=== PATIENT | female | born 1955 | race Caucasian/White ===

== ENCOUNTER → 2024-01-28 | Outpatient (CLI) | payer MEDICARE, SELFPAY ==
--- NOTE | 2024-01-28 14:56 | EKG_ITS ---
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
== END | disposition home or self-care (01) ==
LOC: SEKG 14:49
PROVIDERS: PCP Family Medicine; Referring Provider Internal Medicine Hematology & Oncology; Visit Provider Internal Medicine Hematology & Oncology
DX: C50.412 Malignant neoplasm of upper-outer quadrant of left female breast (principal); C79.51 Secondary malignant neoplasm of bone
CPT/HCPCS: 93005

== ENCOUNTER 2024-01-29 14:17 | Outpatient (RCR) | payer MEDICARE, SELFPAY ==
--- NOTE | 2024-01-10 11:31 | CTCTSUMM_ITS ---
[facility] [address] [place], [place] [address] Treatment Summary Date: 01/10/2024 MR#: [id number] Name: JEROME IBARRA : 1955 Dx: C50.412 Referring Physician: Samm Gottlieb MD (A) Diagnosis: [ICD10] C50.412 Malignant neoplasm of upper-outer quadrant of left female breast; [IC D10] C79.51 Secondary malignant neoplasm of bone (B) Aim of Treatment: Palliative (C) Concomitant Chemotherapy: Sequential (D) Radiation Dates: Prior radiation therapy to the left chest wall and regional node bearing si violette 6300 cGy March 2023. For C-spine mets recently discovered had additional radiother apy as follows on dates 11/21/2023 through 12/04/2023. Treatment Prescription 3000 VMAT 6 MV PHOT 3,000 cGy 10 300 cGy Approved (E) All arteaga were treated using customized MLC Blocks (F) (G) Finding at Discharge: When seen for first follow-up on 01/10/2024, patient was doing well with no significant pain in neck or elsewhere. (H) Discharge Instructions and F/U Appt was given: The patient was also advised to continue follow-up with Dr. Nathan and primary care physician: Electronically signed by: Ford Ortiz MD, JARRETT 01/10/2024 11:29 AM
[2024-01-16 16:32] LABS: Basophils % (Auto) 1 % (0-2.5); Eosinophils # (Auto) 0.1 Thou/mm3 (0.0-0.5); Eosinophils % (Auto) 2 % (0-10); Hematocrit 36.4 % (36.0-46.0); Immature Granulocytes % (Auto) 0 % (0-0); Immature Granulocytes Auto 0.01 Thou/mm3 (0.00-0.00); Lymphocytes % (Auto) 22 % (10-50); Mean Corpuscular Hemoglobin 29.5 pg (25.0-35.0); Mean Corpuscular Volume 89 fL (80-100); Monocytes # (Auto) 0.4 Thou/mm3 (0.0-0.8); Monocytes % (Auto) 9 % (0-12); Neutrophils # (Auto) 2.9 Thou/mm3 (1.8-7.7); Neutrophils % (Auto) 66 % (37-80); Nucleated Red Blood Cell % 0 /100 WBC (0); Platelet Count 213 Thou/mm3 (140-440); RDW Standard Deviation 47.9 fL (36.4-46.3); Red Blood Count 4.07 Miln/mm3 (4.00-5.20); White Blood Count 4.4 Thou/mm3 (3.6-11.0)
[2024-01-16 17:03] LABS: Alanine Aminotransferase 12 U/L (10-49); Albumin, Serum 4.4 gm/dL (3.4-4.8); Alkaline Phosphatase 68 U/L (46-116); Anion Gap 6 (7-16); Aspartate Amino Transferase 22 U/L (0-34); BUN/Creatinine Ratio 16 Ratio (12-20); Bilirubin,Total 0.4 mg/dL (0.3-1.2); Blood Urea Nitrogen 14 mg/dL (9-23); Calcium 9.2 mg/dL (8.3-10.6); Calcium (Corrected) 9.2 mg/dL (8.5-10.1); Carbon Dioxide 25.8 mMol/L (20.0-31.0); Chloride 105 mMol/L (98-107); Creatinine (Component) 0.9 mg/dL (0.6-1.3); Globulin 2.2 gm/dL (2.3-3.5); Glucose 90 mg/dL (74-106); Osmolality,Calculated 274 (275-295); Potassium 3.9 mMol/L (3.4-5.1); Sodium 137 mMol/L (136-145); Total Protein 6.6 gm/dL (5.7-8.2); eGFR > 60 See Note
[2024-01-16 17:04] LABS: Carcinoembryonic Antigen 1.7 ng/mL (0.0-5.0)
[2024-01-22 06:29] LABS: CA 27.29* 37 U/mL (LESS THAN 38)
[2024-01-29 15:33] LABS: Basophils % (Auto) 0 % (0-2.5); Eosinophils % (Auto) 1 % (0-10); Hematocrit 34.6 % (36.0-46.0); Hemoglobin 11.8 g/dL (12.0-16.0); Immature Granulocytes % (Auto) 0 % (0-0); Lymphocytes % (Auto) 36 % (10-50); Mean Corpuscular HGB Conc 34.1 g/dl (31.0-37.0); Mean Corpuscular Hemoglobin 30.1 pg (25.0-35.0); Mean Corpuscular Volume 88 fL (80-100); Monocytes # (Auto) 0.2 Thou/mm3 (0.0-0.8); Monocytes % (Auto) 6 % (0-12); Neutrophils # (Auto) 1.5 Thou/mm3 (1.8-7.7); Neutrophils % (Auto) 57 % (37-80); Nucleated Red Blood Cell % 0 /100 WBC (0); Platelet Count 125 Thou/mm3 (140-440); RDW Standard Deviation 45.7 fL (36.4-46.3); Red Blood Count 3.92 Miln/mm3 (4.00-5.20)
[2024-01-29 16:00] LABS: Alanine Aminotransferase 11 U/L (10-49); Albumin, Serum 4.6 gm/dL (3.4-4.8); Alkaline Phosphatase 68 U/L (46-116); Anion Gap 7 (7-16); Aspartate Amino Transferase 20 U/L (0-34); BUN/Creatinine Ratio 16 Ratio (12-20); Bilirubin,Total 0.4 mg/dL (0.3-1.2); Blood Urea Nitrogen 14 mg/dL (9-23); Carbon Dioxide 28.5 mMol/L (20.0-31.0); Chloride 102 mMol/L (98-107); Creatinine (Component) 0.9 mg/dL (0.6-1.3); Globulin 2.3 gm/dL (2.3-3.5); Glucose 88 mg/dL (74-106); Osmolality,Calculated 273 (275-295); Sodium 137 mMol/L (136-145); Total Protein 6.9 gm/dL (5.7-8.2); eGFR > 60 See Note
[2024-01-29 16:02] LABS: White Blood Count 2.7 Thou/mm3 (3.6-11.0)
[2024-02-04 07:01] LABS: CA 27.29* <10 U/mL (LESS THAN 38)
== END 2024-02-02 23:59 | disposition home or self-care (01) ==
LOC: SCTC 14:17
PROVIDERS: Internal Medicine Hematology & Oncology; PCP Family Medicine; Referring Provider Family Medicine; Visit Provider Radiology Therapeutic Radiology
DX: Z51.11 Encounter for antineoplastic chemotherapy (principal); C50.412 Malignant neoplasm of upper-outer quadrant of left female breast; Z17.0 Estrogen receptor positive status [ER+]; Z17.22 Progesterone receptor negative status; Z17.32 Human epidermal growth factor receptor 2 negative status; C79.51 Secondary malignant neoplasm of bone
CPT/HCPCS: 36591; 80053; 82378; 85025; 86300; 96365; 96367; 96402; 99212; A4216; J1642; J3489; J9395; G0463

== ENCOUNTER 2024-02-18 12:59 | Outpatient (RCR) | payer MEDICARE, SELFPAY ==
[2024-02-08 11:33] LABS: Basophils % (Auto) 1 % (0-2.5); Eosinophils % (Auto) 1 % (0-10); Hematocrit 34.9 % (36.0-46.0); Hemoglobin 11.8 g/dL (12.0-16.0); Immature Granulocytes % (Auto) 1 % (0-0); Immature Granulocytes Auto 0.01 Thou/mm3 (0.00-0.00); Lymphocytes # (Auto) 0.8 Thou/mm3 (1.0-4.8); Lymphocytes % (Auto) 38 % (10-50); Mean Corpuscular HGB Conc 33.8 g/dl (31.0-37.0); Mean Corpuscular Hemoglobin 30.9 pg (25.0-35.0); Mean Corpuscular Volume 91 fL (80-100); Monocytes # (Auto) 0.2 Thou/mm3 (0.0-0.8); Monocytes % (Auto) 9 % (0-12); Neutrophils # (Auto) 1.1 Thou/mm3 (1.8-7.7); Neutrophils % (Auto) 50 % (37-80); Nucleated Red Blood Cell % 0 /100 WBC (0); Platelet Count 97 Thou/mm3 (140-440); RDW Standard Deviation 49.3 fL (36.4-46.3); Red Blood Count 3.82 Miln/mm3 (4.00-5.20)
[2024-02-08 12:09] LABS: Carcinoembryonic Antigen 1.6 ng/mL (0.0-5.0)
[2024-02-08 12:10] LABS: Alanine Aminotransferase 10 U/L (10-49); Albumin, Serum 4.6 gm/dL (3.4-4.8); Albumin/Globulin Ratio 2.1 (1.2-2.2); Alkaline Phosphatase 63 U/L (46-116); Anion Gap 10 (7-16); Aspartate Amino Transferase 19 U/L (0-34); BUN/Creatinine Ratio 13 Ratio (12-20); Bilirubin,Total 0.3 mg/dL (0.3-1.2); Blood Urea Nitrogen 12 mg/dL (9-23); Calcium 9.5 mg/dL (8.3-10.6); Calcium (Corrected) 9.5 mg/dL (8.5-10.1); Carbon Dioxide 26.3 mMol/L (20.0-31.0); Chloride 102 mMol/L (98-107); Creatinine (Component) 0.9 mg/dL (0.6-1.3); Globulin 2.2 gm/dL (2.3-3.5); Glucose 105 mg/dL (74-106); Osmolality,Calculated 275 (275-295); Potassium 3.8 mMol/L (3.4-5.1); Sodium 138 mMol/L (136-145); Total Protein 6.8 gm/dL (5.7-8.2); eGFR > 60 See Note
[2024-02-08 12:16] LABS: White Blood Count 2.1 Thou/mm3 (3.6-11.0)
--- NOTE | 2024-02-11 15:18 | CTCFLWUP_ITS ---
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 S/p left modified radical mastectomy (09/19/2022) S/p 4 cycles of dose dense AC chemotherapy followed by 3 cycles of Taxol in the adjuvant setting. 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 The last dose of Taxol discontinued. Status post adjuvant anastrozole 02/21/2023?11/26/2023. Stopped due to progression Patient was not able to tolerate abemaciclib which caused significant diarrhea. Currently undergoing radiation therapy left chest as well as left neck. REASON FOR TODAY?S VISIT: This is office follow-up visit. Ms. Ibarra is here at [facility]. Recently she was found to have metastatic disease to cervical vertebral augusto s as well as to the lumbar spine area. She completed radiation therapy to the cervical vertebra. Dany ladd is on ribociclib and fulvestrant and doing well. Her pain is better controlled with the gabape ntin. REASON FOR TODAY?S VISIT: Follow-up. Patient is metastatic breast cancer on ribociclib and fulvestrant. Patient is doing well . She does not have any complaints with ribociclib and tolerating it. Patient is on 400 mg twice da matthieu. She is also on bone infusions and take calcium and vitamin D. She would like me to increase he r gabapentin so her pain is better controlled. She says her pain gets worse and when she is stressed out or worked too much. She would like to also go back to her chiropractic. HISTORY OF PRESENT ILLNESS: Patient is a 69-year-old female with the following oncology his tory. 02/01/2022: Bilateral screening mammograms? 02/01/2022: Bilateral breast ultrasound 07/20/2022: Ultrasound-guided biopsy of the left breast nodule. 08/15/2022: Ms. Ibarra had breast lumpectomy and sentinel lymph node biopsy 09/07/2022: Echocardiogram showed left ventricular ejection fraction 65%. 09/19/2022: Ms. Ibarra had left modified radical mastectomy 09/28/2022: PET/CT scan 11/16/2022: Patient had first cycle of dose dense AC chemotherapy. 11/20/2022: Patient was seen in the emergency room because of epigastric pain and had EKG done. Troponin levels were in the normal range twice. Echocardiogram showed an ejection fraction of 60-65% Dr. Cortes Ravi saw Ms. Ibarra on 11/25/2022. He cleared Ms. Ibarra to continue chemotherapy from c ardiology point of view. 12/28/2022: Ms. Ibarra had a full cycle of dose dense AC. 01/18/2023 - 02/15/2023: Ms. Ibarra had 3 cycles of dose dense Taxol. Unfortunately she was not abl e to get the fourth cycle of Taxol due to significant peripheral neuropathy. 02/21/2023: Ms. Ibarra is started on adjuvant anastrozole as well as abemaciclib. After taking abem aciclib 150 mg p.o. twice daily for 6 days Ms. Ibrara decided to discontinue it due to significant d iarrhea. 03/14/2023: Ms. Ibarra received first dose of adjuvant zoledronic acid. 03/28/2023: Ms. Ibarra is started on adjuvant radiation therapy to the left chest wall as well as lef t side of neck. 09/20/2023: PET/CT scan 10/01/2023: MRI of the thoracic spine with and without contrast 10/29/2023: MRI of the cervical spine with and without contrast 11/21/2023: Ms. Ibarra is started on radiation therapy to the cervical spine area. 11/23/2023: Bone scan? PAST MEDICAL HISTORY: BREAST?CA???HIGH?BLOOD?PRESSURE PAST SURGICAL HISTORY: GALLBLADDER,??HYSTRECTOMY??2006 MEDICATIONS: 1. albuterol - As directed 2. alendronate - 35 mg 1 tab Weekly 3. amlodipine - 25 mg Daily 4. baclofen - 10 mg Daily 5. Colace - 100 mg 1 Capsule Daily 6. Compazine - 10 mg 1 tab As needed 7. FLUoxetine - 10 mg 1 tab Daily 8. gabapentin - 600 mg 1 tab Three times a day 9. gabapentin - 300 mg 3 Capsule 3 tabs three times Daily 10. HYDROcodone-acetaminophen - 7.5-325 mg 1 tab q6 11. hydrocodone-acetaminophen - 5-325 mg 1 tab As needed 12. Lomotil - 2.5-0.025 mg 1 tab Every 6 Hours 13. omeprazole - 20 mg 1 Daily 14. ribociclib - 400 mg/day (200 mg x 2) 2 tab Daily 15. simvastatin - 20 mg Daily 16. traZODone - 50 mg 1 tab Every day before sleep 17. Vitamin B1 - 1 tab Daily 18. Vitamin D3 - 400 unit 1 Capsule Daily 19. vitamins A, C, and E/dietary supplement,[facility] comb no.12 - As directed 20. ZINC ACETATE - As directed 21. Zofran - 4 mg tab As needed Medications Last Reconciled by Karo Blackwood MA on 02/11/2024 ALLERGIES: sulfasalazine REVIEW OF SYSTEMS: Neurological: No headache, seizures or blurring of vision. Gastrointestinal: No nausea, vomiting, diarrhea or constipation. Cardiovascular: No palpitations or angina pains. Respiratory: No cough, chest pain or shortness of breath. PHYSICAL EXAMINATION: VITAL SIGNS: Temperature?98.3, B/P?129/83, Oxygen?Saturation?92% Weight?129?lbs (Change?since?02/08/24 :?2?lbs) PAIN: 0 - No pain ECOG Performance Status: 1 - Symptomatic; ambulatory; restricted in strenuous activity EYE: Conjunctivae is moist MOUTH: Oral cavity is dry. CHEST: Clear to auscultation. No wheezes or rales audible. CARDIAC: Rhythm regular, no murmurs or gallops present. ABDOMEN: Soft. No hepatosplenomegaly. EXTREMITIES: No pedal edema or cyanosis. LABORATORY DATA: Date 02/08/24 ??WHITE?BLOOD?COUNT?(Thou/mm3) 2.1?L ??RED?BLOOD?COUNT?(Miln/mm3) 3.82?L ??HEMOGLOBIN?(gm/dl) 11.8?L ??HEMATOCRIT?(%) 34.9?L ??MCV?(MEAN?CORPUSCULAR?VOL)?(fl) 91 ??MCH?(MEAN?CORPUSCULAR?HGB)?(pg) 30.9 ??MCHC?(MEAN?CORPSCULR?HGB?CONC)?(gm/dl) 33.8 ??RDW?(RBC?DISTRIBUTION?WDTH)?SD?(fl) 49.3?H ??PLATELET?COUNT?(Thou/mm3) 97?L ??NEUTROPHILS?%,?AUTO?(%) 50 ??LYMPH?%,?AUTO?(%) 38 ??MONO?%,?AUTO?(%) 9 ??EOS?%,?AUTO?(%) 1 ??BASO?%,?AUTO?(%) 1 ??NUCLEATED?RBC?%?(/100?WBC) 0 ??NEUTROPHILS,?AUTO?(Thou/mm3) 1.1?L ??LYMPH,?AUTO?(Thou/mm3) 0.8?L ??MONO,?AUTO?(Thou/mm3) 0.2 ??EOS,?AUTO?(Thou/mm3) 0.0 ??BASO,?AUTO?(Thou/mm3) 0.0 ??NUCLEATED?RBC?#?(Thou/mm3) 0.00 ??IMMATURE?GRANULOCYTES?%?AUTO?(%) 1?H ??IMMATURE?GRANULOCYTES,?AUTO?(Thou/mm3) 0.01?H ??GLUCOSE,RANDOM?(mg/dL) 105 ??BLOOD?UREA?NITROGEN?(mg/dL) 12 ??CREATININE?(mg/dL) 0.90 ??SODIUM?(mmol/L) 138 ??POTASSIUM?(mmol/L) 3.8 ??CHLORIDE?(mmol/L) 102 ??CO2?(CARBON?DIOXIDE)?(mmol/L) 26.3 ??ANION?GAP?(mmol/L) 10 ??OSMOLALITY,?CALC 275 ??BUN/CREATININE?RATIO?(Ratio) 13 ??CrCl?(CandG)?(ml/min) 54.41 ??AST/SGOT?(Unit/L) 19 ??ALT/SGPT?(Unit/L) 10 ??ALKALINE?PHOSPHATASE?(Unit/L) 63 ??BILIRUBIN,?TOTAL?(mg/dL) 0.3 ??PROTEIN?TOTAL?(gm/dl) 6.8 ??ALBUMIN,?SERUM?(gm/dl) 4.6 ??GLOBULIN?(gm/dl) 2.2?L ??ALBUMIN/GLOBULIN?RATIO 2.1 ??CALCIUM,?SERUM?(mg/dL) 9.5 ??CALCIUM?SERUM?(CORRECTED)?(mg/dL) 9.5 ??CEA?(O*)?(ng/ml) 1.6 Other?Labs ? ??CrCl?(J)?(ml/min) 59.6 ??eGFR?(See?Note) >?60 ASSESSMENT: #1 stage IV metastatic breast cancer with bone mets, ER positive ME negative HER2/colette negative AKT1 mutation positive Bone scan showed osseous metastatic disease as documented above. MRI of the cczwcal spine with and w ithout contrast showed osseous metastatic disease involving C5, C6, C7 vertebral bodies. Completed radiotherapy to the cervical spine Patient started on Faslodex and ribociclib Patient previously was on adjuvant anastrozole started on February 21, 2023. Patient adjuvant abemaci clib 150 mg p.o. twice daily for about 6 days. She was unable to continue due to significant diarrhea . Patient also received first dose of adjuvant zoledronic acid on 03/14/2023. S/p 4 cycles of dose dense AC and 3 cycles of dose dense Taxol. Ms. Ibarra is scheduled to receive t hird cycle of dose dense Taxol on 02/15/2023. S/p left modified radical mastectomy (09/19/2022) Will hold on Capivasertib which can be used in third line setting Plan is to continue ribociclib and fulvestrant until further progression of disease PET CT scan ordered to see response to treatment CBC CMP CA 15-3 EKG and RTC in 1 month #2 bone mets Zoledronic acid IV every 3 months for bone mets Continue Citracal 1 tablet p.o. twice da matthieu. #3 pain management Patient to follow with Dr. Ortiz for pain management Ordered gabapentin 300 mg 3 times daily for better neuropathic pain control Electronically Signed by: Inocente Nathan MD T: 3:15 PM CC: Baljeet? PCP: Jewel Dolan Referring: Jewel Dolan This document was completed utilizing speech recognition software. Grammatical errors, random word in sertions, pronoun errors, and incomplete sentences are an occasional consequence of this system due t o software limitations, ambient noise, and hardware issues. Any formal questions or concerns about th e content, text or information contained within the body of this dictation should be directly address ed to the provider for clarification.
[2024-02-12 06:27] LABS: CA 27.29* 27 U/mL (LESS THAN 38)
[2024-02-15 10:52] LABS: Basophils % (Auto) 1 % (0-2.5); Eosinophils % (Auto) 1 % (0-10); Hematocrit 34.8 % (36.0-46.0); Hemoglobin 11.7 g/dL (12.0-16.0); Immature Granulocytes % (Auto) 0 % (0-0); Lymphocytes # (Auto) 0.7 Thou/mm3 (1.0-4.8); Lymphocytes % (Auto) 31 % (10-50); Mean Corpuscular HGB Conc 33.6 g/dl (31.0-37.0); Mean Corpuscular Hemoglobin 30.7 pg (25.0-35.0); Mean Corpuscular Volume 91 fL (80-100); Monocytes # (Auto) 0.2 Thou/mm3 (0.0-0.8); Monocytes % (Auto) 7 % (0-12); Neutrophils # (Auto) 1.3 Thou/mm3 (1.8-7.7); Neutrophils % (Auto) 59 % (37-80); Nucleated Red Blood Cell % 0 /100 WBC (0); Platelet Count 205 Thou/mm3 (140-440); RDW Standard Deviation 54.3 fL (36.4-46.3); Red Blood Count 3.81 Miln/mm3 (4.00-5.20)
[2024-02-15 11:07] LABS: White Blood Count 2.3 Thou/mm3 (3.6-11.0)
[2024-02-15 11:12] LABS: Alanine Aminotransferase 13 U/L (10-49); Albumin, Serum 4.5 gm/dL (3.4-4.8); Alkaline Phosphatase 64 U/L (46-116); Anion Gap 8 (7-16); Aspartate Amino Transferase 20 U/L (0-34); BUN/Creatinine Ratio 13 Ratio (12-20); Bilirubin,Total 0.3 mg/dL (0.3-1.2); Blood Urea Nitrogen 12 mg/dL (9-23); Calcium 9.4 mg/dL (8.3-10.6); Calcium (Corrected) 9.4 mg/dL (8.5-10.1); Carbon Dioxide 25.5 mMol/L (20.0-31.0); Chloride 106 mMol/L (98-107); Creatinine (Component) 0.9 mg/dL (0.6-1.3); Globulin 2.2 gm/dL (2.3-3.5); Glucose 84 mg/dL (74-106); Osmolality,Calculated 276 (275-295); Sodium 139 mMol/L (136-145); Total Protein 6.7 gm/dL (5.7-8.2); eGFR > 60 See Note
[2024-02-15 11:27] LABS: CA 15-3 24.4 U/mL (<32.4)
[2024-02-18 13:34] LABS: Basophils % (Auto) 1 % (0-2.5); Eosinophils # (Auto) 0.1 Thou/mm3 (0.0-0.5); Eosinophils % (Auto) 2 % (0-10); Hematocrit 33.5 % (36.0-46.0); Hemoglobin 11.4 g/dL (12.0-16.0); Immature Granulocytes % (Auto) 0 % (0-0); Lymphocytes # (Auto) 1.1 Thou/mm3 (1.0-4.8); Lymphocytes % (Auto) 36 % (10-50); Mean Corpuscular Hemoglobin 31.1 pg (25.0-35.0); Mean Corpuscular Volume 91 fL (80-100); Monocytes # (Auto) 0.2 Thou/mm3 (0.0-0.8); Monocytes % (Auto) 6 % (0-12); Neutrophils # (Auto) 1.7 Thou/mm3 (1.8-7.7); Neutrophils % (Auto) 55 % (37-80); Nucleated Red Blood Cell % 0 /100 WBC (0); Platelet Count 242 Thou/mm3 (140-440); RDW Standard Deviation 55.1 fL (36.4-46.3); Red Blood Count 3.67 Miln/mm3 (4.00-5.20); White Blood Count 3.1 Thou/mm3 (3.6-11.0)
== END 2024-03-04 23:59 | disposition home or self-care (01) ==
LOC: SCTC 12:59
PROVIDERS: PCP Family Medicine; Referring Provider Family Medicine; Visit Provider Internal Medicine Hematology & Oncology
DX: Z51.11 Encounter for antineoplastic chemotherapy (principal); C50.812 Malignant neoplasm of overlapping sites of left female breast; C79.51 Secondary malignant neoplasm of bone; Z17.0 Estrogen receptor positive status [ER+]; Z17.22 Progesterone receptor negative status; Z17.32 Human epidermal growth factor receptor 2 negative status; Z79.818 Long term (current) use of other agents affecting estrogen receptors and estrogen levels; G62.0 Drug-induced polyneuropathy; T45.1X5D Adverse effect of antineoplastic and immunosuppressive drugs, subsequent encounter
CPT/HCPCS: 36591; 80053; 82378; 84443; 84480; 85025; 86300; 96365; 96367; 96402; 99212; A4216; J1642; J3489; J9395; G0463

== ENCOUNTER → 2024-02-28 | Outpatient (CLI) | payer MEDICARE, SELFPAY ==
--- NOTE | 2024-02-28 12:30 | XR_ITS ---
EXAMINATION: PET/CT FUSION SKULL TO THIGH EXAM DATE AND TIME: February 28, 2024 1302 hours Comparison September 20, 2023 INDICATIONS: Diagnosis breast cancer post treatment restaging CTDI:vol (mGy) 2.84 DLP: (mGycm) 259.72 PROCEDURE: 15.39 mCi FDG was administered intravenously To allow for distribution and uptake of radiotracer, the patient was allowed to rest quietly in a shielded room. Imaging was performed on an integrated 16-slice PET/CT scanner, with scanning from the skull base to the mid thigh. Serum blood glucose at the time of the injection was measured 93 mg/dL. CT scanning was performed without oral or intravenous contrast material. FINDINGS: Head and Neck: There is no silvana hypermetabolism in the neck. The visualized portions of the brain are normal in appearance on CT. Chest: Interval weakly hypermetabolic 10 mm pulmonary nodule right lower lobe Abdomen and Pelvis: There is no silvana hypermetabolism in retroperitoneal or pelvic chains. The spleen is normal in size and FDG avidity. Musculoskeletal: Marrow uptake is within normal range. IMPRESSION: Interval weakly hypermetabolic 10 mm pulmonary nodule right lower lobe Recommend high resolution follow-up CT chest post intravenous contrast
== END | disposition home or self-care (01) ==
PROVIDERS: PCP Family Medicine; Referring Provider Internal Medicine Hematology & Oncology; Visit Provider Internal Medicine Hematology & Oncology
DX: R91.1 Solitary pulmonary nodule (principal); C50.412 Malignant neoplasm of upper-outer quadrant of left female breast; C79.51 Secondary malignant neoplasm of bone
CPT/HCPCS: 78815; A9552

== ENCOUNTER 2024-04-01 10:24 | Outpatient (RCR) | payer MEDICARE, SELFPAY ==
[2024-03-25 15:59] LABS: Basophils % (Auto) 1 % (0-2.5); Eosinophils # (Auto) 0.1 Thou/mm3 (0.0-0.5); Eosinophils % (Auto) 3 % (0-10); Hematocrit 29.6 % (36.0-46.0); Hemoglobin 10.3 g/dL (12.0-16.0); Immature Granulocytes % (Auto) 1 % (0-0); Immature Granulocytes Auto 0.02 Thou/mm3 (0.00-0.00); Lymphocytes # (Auto) 0.9 Thou/mm3 (1.0-4.8); Lymphocytes % (Auto) 32 % (10-50); Mean Corpuscular HGB Conc 34.8 g/dl (31.0-37.0); Mean Corpuscular Hemoglobin 32.7 pg (25.0-35.0); Mean Corpuscular Volume 94 fL (80-100); Monocytes # (Auto) 0.2 Thou/mm3 (0.0-0.8); Monocytes % (Auto) 6 % (0-12); Neutrophils # (Auto) 1.7 Thou/mm3 (1.8-7.7); Neutrophils % (Auto) 58 % (37-80); Nucleated Red Blood Cell % 0 /100 WBC (0); Platelet Count 165 Thou/mm3 (140-440); RDW Standard Deviation 62.2 fL (36.4-46.3); Red Blood Count 3.15 Miln/mm3 (4.00-5.20)
[2024-03-25 16:10] LABS: White Blood Count 2.9 Thou/mm3 (3.6-11.0)
[2024-03-25 16:42] LABS: Alanine Aminotransferase 9 U/L (10-49); Albumin, Serum 4.1 gm/dL (3.4-4.8); Albumin/Globulin Ratio 1.9 (1.2-2.2); Alkaline Phosphatase 64 U/L (46-116); Anion Gap 8 (7-16); Aspartate Amino Transferase 17 U/L (0-34); BUN/Creatinine Ratio 18 Ratio (12-20); Bilirubin,Total 0.3 mg/dL (0.3-1.2); Blood Urea Nitrogen 14 mg/dL (9-23); Calcium 8.2 mg/dL (8.3-10.6); Calcium (Corrected) 8.2 mg/dL (8.5-10.1); Carbon Dioxide 24.9 mMol/L (20.0-31.0); Chloride 106 mMol/L (98-107); Creatinine (Component) 0.8 mg/dL (0.6-1.3); Globulin 2.2 gm/dL (2.3-3.5); Glucose 108 mg/dL (74-106); Osmolality,Calculated 279 (275-295); Potassium 3.8 mMol/L (3.4-5.1); Sodium 139 mMol/L (136-145); Total Protein 6.3 gm/dL (5.7-8.2); eGFR > 60 See Note
[2024-03-25 16:46] LABS: CA 15-3 18.1 U/mL (<32.4); Carcinoembryonic Antigen 1.5 ng/mL (0.0-5.0)
[2024-03-31 06:43] LABS: CA 27.29* 31 U/mL (LESS THAN 38)
[2024-04-01 12:16] LABS: Basophils % (Auto) 1 % (0-2.5); Eosinophils % (Auto) 2 % (0-10); Hemoglobin 11.4 g/dL (12.0-16.0); Immature Granulocytes % (Auto) 0 % (0-0); Immature Granulocytes Auto 0.01 Thou/mm3 (0.00-0.00); Lymphocytes # (Auto) 0.8 Thou/mm3 (1.0-4.8); Lymphocytes % (Auto) 32 % (10-50); Mean Corpuscular HGB Conc 34.5 g/dl (31.0-37.0); Mean Corpuscular Volume 96 fL (80-100); Monocytes # (Auto) 0.2 Thou/mm3 (0.0-0.8); Monocytes % (Auto) 7 % (0-12); Neutrophils # (Auto) 1.5 Thou/mm3 (1.8-7.7); Neutrophils % (Auto) 58 % (37-80); Nucleated Red Blood Cell % 0 /100 WBC (0); Platelet Count 144 Thou/mm3 (140-440); RDW Standard Deviation 62.3 fL (36.4-46.3); Red Blood Count 3.45 Miln/mm3 (4.00-5.20)
[2024-04-01 12:19] LABS: White Blood Count 2.7 Thou/mm3 (3.6-11.0)
[2024-04-01 13:11] LABS: Carcinoembryonic Antigen 1.8 ng/mL (0.0-5.0)
[2024-04-01 13:24] LABS: Alanine Aminotransferase 9 U/L (10-49); Albumin, Serum 4.6 gm/dL (3.4-4.8); Albumin/Globulin Ratio 2.1 (1.2-2.2); Alkaline Phosphatase 64 U/L (46-116); Anion Gap 7 (7-16); Aspartate Amino Transferase 18 U/L (0-34); BUN/Creatinine Ratio 16 Ratio (12-20); Bilirubin,Total 0.3 mg/dL (0.3-1.2); Blood Urea Nitrogen 16 mg/dL (9-23); Calcium 9.9 mg/dL (8.3-10.6); Calcium (Corrected) 9.9 mg/dL (8.5-10.1); Carbon Dioxide 27.6 mMol/L (20.0-31.0); Chloride 101 mMol/L (98-107); Globulin 2.2 gm/dL (2.3-3.5); Glucose 87 mg/dL (74-106); Osmolality,Calculated 272 (275-295); Potassium 3.8 mMol/L (3.4-5.1); Sodium 136 mMol/L (136-145); Total Protein 6.8 gm/dL (5.7-8.2); eGFR > 60 See Note
[2024-04-07 06:36] LABS: CA 27.29* 40 U/mL (LESS THAN 38)
== END 2024-04-04 23:59 | disposition home or self-care (01) ==
LOC: SCTC 10:24
PROVIDERS: PCP Family Medicine; Referring Provider Family Medicine; Visit Provider Internal Medicine Hematology & Oncology
DX: C50.812 Malignant neoplasm of overlapping sites of left female breast (principal); C79.51 Secondary malignant neoplasm of bone; Z17.0 Estrogen receptor positive status [ER+]; Z17.22 Progesterone receptor negative status; Z17.32 Human epidermal growth factor receptor 2 negative status; Z92.3 Personal history of irradiation; Z79.818 Long term (current) use of other agents affecting estrogen receptors and estrogen levels; Z90.12 Acquired absence of left breast and nipple
CPT/HCPCS: 36591; 80053; 82378; 85025; 86300; 96402; A4216; J1642; J3489; J9395

== ENCOUNTER 2024-04-16 13:18 | Outpatient (RCR) | payer MEDICARE, SELFPAY ==
--- NOTE | 2024-04-10 14:20 | CTCFLWUP_ITS ---
[facility] [address] [place], [place] [address] FOLLOW-UP NOTE Date: 04/10/2024 MR#: [id number] Name: JEROME IBARRA : 1955 Dx: C50.412 Malignant neoplasm of upper-outer quadrant of left female breast Identification. Patient with history of stage IIIc (status post left modified radical mastectomy 09/19/2022. 4 cycles of dose dense AC chemo followed by 3 cycles of Taxol in adjuvant setting. Patient has since been on anastrozole for receptor positive cancer. Complete XRT left chest wall and regional node bearing sites 6300 centigray completed 3 08/29/2023. PET scan 09/20/2023 showed no interval met disease. Was experiencing neck pain and MRI cervical spine 10/29/2023 showed osseous met disease C5-6-7 area. Bone scan 11/23/2023 showed uptake in C6 L3-L4 right anterior lower rib. Interventional radiologist did not wish to biopsy the cervical spine and because of pain symptoms radiation therapy was delivered 3000 cGy via VMAT completed 12/04/2023. Currently patient is still experiencing some pain taking occasional [place] and Tylenol. Most recent PET scan 02/28/2024 showed normal appearance of bony sites including the cervical area but there was a weakly hypermetabolic 10 mm pulmonary nodule right lower lobe. Assessment#1. History of stage IIIc left breast CA mastectomy and postop chemo and chest wall regional node bearing site radiation completed 08/29/2023. #2. Cervical bone mets noted via bone scan and MRI C-spine radiation completed 12/04/2023. #3. Still having some pain but rarely takes opioids. #3. PET scan 02/28/2024 showed no obvious bony involvement but 10 mm pulmonary nodule right lower lobe which is weakly hypermetabolic. #[address] Nathan. next week to discuss results, possible scheduling of CT. additional therapy. Electronically signed by: Ford Ortiz M.D. 04/10/2024 2:18 PM
--- NOTE | 2024-04-16 15:17 | CTCFLWUP_ITS ---
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 S/p left modified radical mastectomy (09/19/2022) S/p 4 cycles of dose dense AC chemotherapy followed by 3 cycles of Taxol in the adjuvant setting. 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 The last dose of Taxol discontinued. Status post adjuvant anastrozole 02/21/2023?11/26/2023. Stopped due to progression Patient was not able to tolerate abemaciclib which caused significant diarrhea. Currently undergoing radiation therapy left chest as well as left neck. 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 02/01/2022: Bilateral screening mammograms? 02/01/2022: Bilateral breast ultrasound 07/20/2022: Ultrasound-guided biopsy of the left breast nodule. 08/15/2022: Ms. Ibarra had breast lumpectomy and sentinel lymph node biopsy 09/07/2022: Echocardiogram showed left ventricular ejection fraction 65%. 09/19/2022: Ms. Ibarra had left modified radical mastectomy 09/28/2022: PET/CT scan 11/16/2022: Patient had first cycle of dose dense AC chemotherapy. 11/20/2022: Patient was seen in the emergency room because of epigastric pain and had EKG done. Troponin levels were in the normal range twice. Echocardiogram showed an ejection fraction of 60-65% Dr. Cortes Ravi saw Ms. Ibarra on 11/25/2022. He cleared Ms. Ibarra to continue chemotherapy from cardiology point of view. 12/28/2022: Ms. Ibarra had a full cycle of dose dense AC. 01/18/2023 - 02/15/2023: Ms. Ibarra had 3 cycles of dose dense Taxol. Unfortunately she was not able to get the fourth cycle of Taxol due to significant peripheral neuropathy. 02/21/2023: Ms. Ibarra is started on adjuvant anastrozole as well as abemaciclib. After taking abemaciclib 150 mg p.o. twice daily for 6 days Ms. Ibarra decided to discontinue it due to significant diarrhea. 03/14/2023: Ms. Ibarra received first dose of adjuvant zoledronic acid. 03/28/2023: Ms. Ibarra is started on adjuvant radiation therapy to the left chest wall as well as left side of neck. 09/20/2023: PET/CT scan 10/01/2023: MRI of the thoracic spine with and without contrast 10/29/2023: MRI of the cervical spine with and without contrast 11/21/2023: Ms. Ibarra is started on radiation therapy to the cervical spine area. 11/23/2023: Bone scan? 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 FAMILY HISTORY: Father:?LUNG Cancer History:?2 AUNTS LUNG MATERNAL AUNT BREAST ?Clone Family Hx? SOCIAL HISTORY: Occupational?History:?RETIRED Education?Level:?6-Attended?Vocational?School,?did?not?graduate Marital?Status:? Tobacco?Pack?per?Day:?0 ETOH?Use:?SOCIAL Drug?Note:?DENIES Social?History?Note:?LIVES?WITH? ?Clone Social Hx? LITIGATION COUNSEL HISTORY: Menarche?-?Age:?13 Menopause:?2005 :?2 Live?Births:?2 Age?1st?:?23 ?Clone LITIGATION COUNSEL Hx? MEDICATIONS: 1. albuterol - As directed 2. alendronate - 35 mg 1 tab Weekly 3. amlodipine - 25 mg Daily 4. baclofen - 10 mg Daily 5. Colace - 100 mg 1 Capsule Daily 6. Compazine - 10 mg 1 tab As needed 7. FLUoxetine - 10 mg 1 tab Daily 8. gabapentin - 600 mg 1 tab Three times a day 9. gabapentin - 300 mg 3 Capsule 3 tabs three times Daily 10. HYDROcodone-acetaminophen - 7.5-325 mg 1 tab q6 11. hydrocodone-acetaminophen - 5-325 mg 1 tab As needed 12. Lomotil - 2.5-0.025 mg 1 tab Every 6 Hours 13. omeprazole - 20 mg 1 Daily 14. ribociclib - 400 mg/day (200 mg x 2) 2 tab Daily 15. ribociclib - 600 mg/day (200 mg x 3) 3 tab take 2 times daily 16. simvastatin - 20 mg Daily 17. traZODone - 50 mg 1 tab Every day before sleep 18. Vitamin B1 - 1 tab Daily 19. Vitamin D3 - 400 unit 1 Capsule Daily 20. vitamins A, C, and E/dietary supplement,mis comb no.12 - As directed 21. ZINC ACETATE - As directed 22. Zofran - 4 mg tab As needed?Palabra Meds? Medications Last Reconciled by Mirian Figueroa MA on 04/16/2024 ALLERGIES: sulfasalazine REVIEW OF SYSTEMS: A complete 14-point review of systems was performed and is negative except as noted in interval history. PHYSICAL EXAMINATION:?CloneBlock PE? VITAL SIGNS: Temperature?98.4, B/P?119/77, Oxygen?Saturation?96% Weight?131.2?lbs (Change?since?04/10/24:?2.2?lbs) PAIN: 2 - Mild pain ECOG Performance Status: 0 - Asymptomatic and fully active EYE: Conjunctivae is moist MOUTH: Oral cavity is dry. CHEST: Clear to auscultation. No wheezes or rales audible. CARDIAC: Rhythm regular, no murmurs or gallops present. ABDOMEN: Soft. No hepatosplenomegaly. EXTREMITIES: No pedal edema or cyanosis. LABORATORY DATA: I have personally reviewed and interpreted each of the patient?s relevant lab tests, abnormal findings are below: Date 04/01/24 ??GLUCOSE,RANDOM?(mg/dL) 87 ??BLOOD?UREA?NITROGEN?(mg/dL) 16 ??CREATININE?(mg/dL) 1.00 ??SODIUM?(mmol/L) 136 ??POTASSIUM?(mmol/L) 3.8 ??CHLORIDE?(mmol/L) 101 ??CrCl?(CandG)?(ml/min) 50.04 ??AST/SGOT?(Unit/L) 18 ??ALT/SGPT?(Unit/L) 9?L ??ALKALINE?PHOSPHATASE?(Unit/L) 64 ??BILIRUBIN,?TOTAL?(mg/dL) 0.3 ??PROTEIN?TOTAL?(gm/dl) 6.8 ??ALBUMIN,?SERUM?(gm/dl) 4.6 ??GLOBULIN?(gm/dl) 2.2?L ??ALBUMIN/GLOBULIN?RATIO 2.1 ??CALCIUM,?SERUM?(mg/dL) 9.9 ??CALCIUM?SERUM?(CORRECTED)?(mg/dL) 9.9 ASSESSMENT/PLAN: #1 stage IV metastatic breast cancer with bone mets, ER positive VT negative HER2/colette negative AKT1 mutation positive Bone scan showed osseous metastatic disease as documented above. MRI of the cervix spine with and without contrast showed osseous metastatic disease involving C5, C6, C7 vertebral bodies. Completed radiotherapy to the cervical spine Patient started on Faslodex and ribociclib Patient previously was on adjuvant anastrozole started on February 21, 2023. Patient adjuvant abemaciclib 150 mg p.o. twice daily for about 6 days. She was unable to continue due to significant diarrhea. Patient also received first dose of adjuvant zoledronic acid on 03/14/2023. S/p 4 cycles of dose dense AC and 3 cycles of dose dense Taxol. Ms. Ibarra is scheduled to receive third cycle of dose dense Taxol on 02/15/2023. S/p left modified radical mastectomy (09/19/2022) Will hold on Capivasertib which can be used in third line setting Plan is to continue ribociclib and fulvestrant until further progression of disease PET CT scan ordered to see response to treatment CBC CMP CA 15-3 EKG and RTC in 1 month #2 bone mets Zol edronic acid IV every 3 months for bone mets Continue Citracal 1 tablet p.o. twice daily. Ca15-3 is uptrending Will cont to monitor Ribociclib increased to 600 mg BID for 21 days in 28 days #3 pain management Patient to follow with Dr. Ortiz for pain management Ordered gabapentin 300 mg 3 times daily for better neuropathic pain control ORDERS: Cbc,cmp,ca15-3 RETURN TO CLINIC: 2 months BILLING AND COMPLIANCE: I reviewed external records from providers outside my specialty as summarized above. I spent a total of 50 minutes on this patient?s care on the day of their visit excluding time spent related to any billed procedures. This time includes time spent with the patient as well as time spent documenting in the medical record, reviewing patients records and tests, obtaining history, placing orders, communicating with other healthcare professionals, counseling the patient, family or caregiver, and/or care coordination for the diagnoses above. Electronically Signed by: Inocente Nathan MD T: 3:14 PM CC: Baljeet? PCP: Jewel Dolan Referring: Jewel Dolan This document was completed utilizing speech recognition software. Grammatical errors, random word insertions, pronoun errors, and incomplete sentences are an occasional consequence of this system due to software limitations, ambient noise, and hardware issues. Any formal questions or concerns about the content, text or information contained within the body of this dictation should be directly addressed to the provider for clarification.
== END 2024-05-02 23:59 | disposition home or self-care (01) ==
LOC: SCTC 13:18
PROVIDERS: PCP Family Medicine; Referring Provider Family Medicine; Visit Provider Radiology Therapeutic Radiology
DX: C50.812 Malignant neoplasm of overlapping sites of left female breast (principal); C79.51 Secondary malignant neoplasm of bone; Z17.0 Estrogen receptor positive status [ER+]; Z17.22 Progesterone receptor negative status; Z17.32 Human epidermal growth factor receptor 2 negative status; Z90.12 Acquired absence of left breast and nipple; Z92.3 Personal history of irradiation; Z79.818 Long term (current) use of other agents affecting estrogen receptors and estrogen levels; G89.3 Neoplasm related pain (acute) (chronic); R91.1 Solitary pulmonary nodule
CPT/HCPCS: 99212; 99213; G0463

== ENCOUNTER → 2024-05-01 | Outpatient (CLI) | payer MEDICARE, SELFPAY ==
--- NOTE | 2024-05-01 16:30 | XR_ITS ---
Examination: Lumbar spine, 5 views Technique: Lumbar spine AP, lateral, coned lateral lower lumbar spine, bilateral obliques 5 views Exam date and time: May 01, 2024 1648 hrs. Indications: Low back pain radiating down both legs. Findings: Significant osteopenia Lower lumbar dextroscoliosis 10 degrees Diffuse significant facet arthropathy No lumbar fracture Diffuse lumbar disc narrowing, advanced L4-5 and L3-L4 No spondylolisthesis Impression: Diffuse lumbar degenerative disc disease, advanced L3-L4, L4-L5
== END | disposition home or self-care (01) ==
LOC: CDIM 05-02 07:42
PROVIDERS: PCP Family Medicine; Referring Provider Family Medicine; Visit Provider Family Medicine
DX: M51.369 Other intervertebral disc degeneration, lumbar region without mention of lumbar back pain or lower extremity pain (principal)
CPT/HCPCS: 72110

== ENCOUNTER → 2024-05-17 | Outpatient (CLI) | payer MEDICARE, SELFPAY ==
--- NOTE | 2024-05-17 08:30 | XR_ITS ---
Examination: MRI lumbar spine without contrast Date and time of exam: May 17, 2024 at 0811 hrs. Indications: Lower back pain radiating down the left leg 3 years worse the last week Technique: Multiple MRI axial and sagittal sections lumbar spine. Sagittal T2-weighted images, TR 3500, TE 118 T1 weighted transverse sections, TR 688 T8.5, T2-weighted sagittal sections T1 weighted sagittal sections TR 621, TE 30 T2 axial sections, TR 4, 190, TE 84. Findings: Adequate alignment lumbar vertebral bodies No lumbar fracture Advanced disc narrowing L4-L5 moderate disc narrowing L3-L4 Diffuse lumbar disc desiccation L5-S1 no disc protrusion L4-L5 5 mm central lumbar disc bulge L3-L4 6 mm central lumbar disc bulge extending to the left foraminal region but no ganglionic compression L2-L3 8 mm left foraminal disc bulge, no ganglionic compression L1-2 no disc protrusion Impression: Advanced degenerative disc disease L4-L5 Moderate degenerative disc disease L3-L4 L4 L5 5 percent lumbar disc bulge L3-L4 6 mm central lumbar disc bulge extending to the foraminal regions no ganglionic compression L2-L3 8 mm left foraminal disc bulge, no ganglionic compression
== END | disposition home or self-care (01) ==
LOC: SMRI 07:47
PROVIDERS: PCP Family Medicine; Referring Provider Family Medicine; Visit Provider Family Medicine
DX: M51.369 Other intervertebral disc degeneration, lumbar region without mention of lumbar back pain or lower extremity pain (principal)
CPT/HCPCS: 72148

== ENCOUNTER 2024-05-28 12:52 | Outpatient (RCR) | payer MEDICARE, SELFPAY ==
[2024-05-27 14:23] LABS: Basophils % (Auto) 1 % (0-2.5); Eosinophils % (Auto) 1 % (0-10); Hematocrit 27.6 % (36.0-46.0); Hemoglobin 9.7 g/dL (12.0-16.0); Immature Granulocytes % (Auto) 1 % (0-0); Immature Granulocytes Auto 0.01 Thou/mm3 (0.00-0.00); Lymphocytes # (Auto) 0.5 Thou/mm3 (1.0-4.8); Lymphocytes % (Auto) 22 % (10-50); Mean Corpuscular HGB Conc 35.1 g/dl (31.0-37.0); Mean Corpuscular Hemoglobin 35.7 pg (25.0-35.0); Mean Corpuscular Volume 102 fL (80-100); Monocytes # (Auto) 0.1 Thou/mm3 (0.0-0.8); Monocytes % (Auto) 5 % (0-12); Neutrophils # (Auto) 1.5 Thou/mm3 (1.8-7.7); Neutrophils % (Auto) 70 % (37-80); Nucleated Red Blood Cell % 0 /100 WBC (0); RDW Standard Deviation 58.1 fL (36.4-46.3); Red Blood Count 2.72 Miln/mm3 (4.00-5.20)
[2024-05-27 14:27] LABS: White Blood Count 2.1 Thou/mm3 (3.6-11.0)
[2024-05-27 14:34] LABS: Platelet Count 72 Thou/mm3 (140-440)
[2024-05-27 14:40] LABS: Alanine Aminotransferase < 7 U/L (10-49); Albumin, Serum 3.9 gm/dL (3.4-4.8); Albumin/Globulin Ratio 1.8 (1.2-2.2); Alkaline Phosphatase 69 U/L (46-116); Anion Gap 9 (7-16); Aspartate Amino Transferase 18 U/L (0-34); BUN/Creatinine Ratio 17 Ratio (12-20); Bilirubin,Total 0.3 mg/dL (0.3-1.2); Blood Urea Nitrogen 15 mg/dL (9-23); Calcium 9.5 mg/dL (8.3-10.6); Calcium (Corrected) 9.6 mg/dL (8.5-10.1); Carbon Dioxide 28.3 mMol/L (20.0-31.0); Chloride 105 mMol/L (98-107); Creatinine (Component) 0.9 mg/dL (0.6-1.3); Globulin 2.2 gm/dL (2.3-3.5); Glucose 130 mg/dL (74-106); Osmolality,Calculated 285 (275-295); Potassium 3.9 mMol/L (3.4-5.1); Sodium 142 mMol/L (136-145); Total Protein 6.1 gm/dL (5.7-8.2); eGFR > 60 See Note
[2024-05-27 14:58] LABS: Carcinoembryonic Antigen 1.9 ng/mL (0.0-5.0)
[2024-05-27 15:01] LABS: Slide Review Platelets confirmed
[2024-06-02 06:58] LABS: CA 27.29* 38 U/mL (LESS THAN 38)
== END 2024-06-02 23:59 | disposition home or self-care (01) ==
LOC: SCTC 12:52
PROVIDERS: Internal Medicine Hematology & Oncology; PCP Family Medicine; Referring Provider Radiology Therapeutic Radiology; Visit Provider Radiology Therapeutic Radiology
DX: Z51.11 Encounter for antineoplastic chemotherapy (principal); C50.812 Malignant neoplasm of overlapping sites of left female breast; C79.51 Secondary malignant neoplasm of bone; Z17.0 Estrogen receptor positive status [ER+]; Z17.21 Progesterone receptor positive status; Z17.32 Human epidermal growth factor receptor 2 negative status; Z92.3 Personal history of irradiation; Z90.12 Acquired absence of left breast and nipple; Z79.818 Long term (current) use of other agents affecting estrogen receptors and estrogen levels
CPT/HCPCS: 36591; 80053; 82378; 85025; 86300; 96365; 96367; 96402; A4216; J1642; J3489; J7040; J9395

== ENCOUNTER → 2024-06-11 | Outpatient (CLI) | payer MEDICARE, SELFPAY ==
--- NOTE | 2024-06-11 08:45 | XR_ITS ---
Examination: Diagnostic digital mammography, unilateral, right Computer aided detection 3-D breast Tomosynthesis, unilateral Date and time of exam: 06/11/2024, 8:31 AM Comparisons: January 2022 through May 2023 Indications: Left mastectomy Technique: Nonmagnified MLO, CC views of the right breast have been obtained, reconstructed from 3-D Tomosynthesis images. R2 computer aided detection program utilized for evaluation of suspicious masses and/or abnormal calcifications. 3-D Tomosynthesis images obtained. Technologist: Findings: The breasts are heterogeneously dense, which may obscure small masses. Stable calcifications. Multiple postbiopsy marker clips. No suspicious masses or calcifications. Impression: BI-RADS category 2: Benign findings Recommend 1 year follow-up mammogram
== END | disposition home or self-care (01) ==
LOC: CDIM 08:25
PROVIDERS: Referring Provider Family Medicine; Visit Provider Family Medicine
DX: R92.321 Mammographic fibroglandular density, right breast (principal); R92.1 Mammographic calcification found on diagnostic imaging of breast; C50.412 Malignant neoplasm of upper-outer quadrant of left female breast
CPT/HCPCS: 77061; 77065; G0279

== ENCOUNTER 2024-07-01 15:01 | Outpatient (RCR) | payer MEDICARE, SELFPAY ==
[2024-06-27 11:04] LABS: Basophils % (Auto) 1 % (0-2.5); Eosinophils % (Auto) 1 % (0-10); Hematocrit 32.3 % (36.0-46.0); Hemoglobin 11.1 g/dL (12.0-16.0); Immature Granulocytes % (Auto) 1 % (0-0); Immature Granulocytes Auto 0.01 Thou/mm3 (0.00-0.00); Lymphocytes # (Auto) 0.7 Thou/mm3 (1.0-4.8); Lymphocytes % (Auto) 46 % (10-50); Mean Corpuscular HGB Conc 34.4 g/dl (31.0-37.0); Mean Corpuscular Hemoglobin 36.6 pg (25.0-35.0); Mean Corpuscular Volume 107 fL (80-100); Monocytes # (Auto) 0.1 Thou/mm3 (0.0-0.8); Monocytes % (Auto) 10 % (0-12); Neutrophils # (Auto) 0.6 Thou/mm3 (1.8-7.7); Neutrophils % (Auto) 42 % (37-80); Nucleated Red Blood Cell % 0 /100 WBC (0); RDW Standard Deviation 71.3 fL (36.4-46.3); Red Blood Count 3.03 Miln/mm3 (4.00-5.20)
[2024-06-27 11:09] LABS: Platelet Count 61 Thou/mm3 (140-440); White Blood Count 1.5 Thou/mm3 (3.6-11.0)
[2024-06-27 11:34] LABS: Alanine Aminotransferase < 7 U/L (10-49); Albumin, Serum 4.3 gm/dL (3.4-4.8); Albumin/Globulin Ratio 1.9 (1.2-2.2); Alkaline Phosphatase 64 U/L (46-116); Anion Gap 9 (7-16); Aspartate Amino Transferase 18 U/L (0-34); BUN/Creatinine Ratio 16 Ratio (12-20); Bilirubin,Total 0.5 mg/dL (0.3-1.2); Blood Urea Nitrogen 14 mg/dL (9-23); Calcium 9.3 mg/dL (8.3-10.6); Calcium (Corrected) 9.3 mg/dL (8.5-10.1); Carbon Dioxide 27.8 mMol/L (20.0-31.0); Chloride 107 mMol/L (98-107); Creatinine (Component) 0.9 mg/dL (0.6-1.3); Globulin 2.3 gm/dL (2.3-3.5); Glucose 84 mg/dL (74-106); Osmolality,Calculated 286 (275-295); Sodium 144 mMol/L (136-145); Total Protein 6.6 gm/dL (5.7-8.2); eGFR > 60 See Note
[2024-06-27 11:57] LABS: CA 15-3 30.4 U/mL (<32.4); Carcinoembryonic Antigen 2.3 ng/mL (0.0-5.0)
[2024-06-27 12:25] LABS: Slide Review Platelets confirmed
[2024-06-27 18:02] LABS: Path Review Blood Smear Sent to Pathologist
--- NOTE | 2024-07-01 01:17 | CTCFLWUP_ITS ---
Patient: JEROME IBARRA : 1955 Page 9 of 12 FOLLOW UP NOTE DATE OF SERVICE: 06/30/2024 NAME: JEROME IBARRA ACCOUNT: [id number] : 1955 AGE: 69 INTERVAL HISTORY: Bam Coleman, a 69-year-old female with dizziness when standing, neck pain, and altered taste perception, has stage 4 breast cancer (ERPR+) diagnosed in 2022. She completed radiation therapy and is currently on ribociclib and fulvestrant. Recent labs showed low WBC (1.5) and neutrophils (0.6). Treatment plan includes holding ribociclib for one week, obtaining CBC later this week, restarting medication if counts improve, reviewing upcoming PET scan results, and scheduling cataract surgery around medication break beforehand. Chief Complaint Dizziness when standing up from low positions, neck pain, altered taste perception History of Present Illness Bam Coleman is a 69-year-old woman with stage 4 breast cancer, ERPR positive, initially diagnosed as stage 3 in 2022, presenting for follow-up. She reports feeling okay overall but experiences dizziness when standing up from a low position. The patient notes that sometimes food doesn't taste the same anymore, although her weight has remained consistent. The patient mentions ongoing neck pain, which may be related to metastatic disease or arthritis. She completed extra radiation to the left chest wall in August 2023, and 3000 cGy of radiation was administered in December 2023. The patient is currently on ribociclib and fulvestrant at 600 mg, which she started in April. She reports adherence to the medication regimen, having just started a new cycle on the day of the visit. The patient expresses interest in addressing her cataracts. She also mentions attending a gym that offers vibratory therapy, which resulted in swollen ankles. The patient's , who has been with her for 34 years, reports that the cancer diagnosis and treatment have been taking an emotional toll on both of them. Medical History - Stage 4 breast cancer, ERPR positive - Stage 3 breast cancer, initially diagnosed in 2022 - Dizziness when standing up from a low position - Altered taste perception - Neck pain - Cataracts - Ankle swelling after vibratory therapy Surgical History - Radiation therapy to the chest and left neck - Additional radiation therapy to the left chest wall in August 2023 - Radiation therapy (3000 cGy) in December 2023 Medications and Supplements - Ribociclib (Kisqali) 600 mg - Started recently - Causing low white blood cell count and neutrophils - Fulvestrant - Abemaciclib - Discontinued due to significant diarrhea - EstroGel - Used from February 2023 to November 2023 - Discontinued due to disease progression Family History - Father: Acute myeloid leukemia diagnosed at age 64, shortly after starting chemotherapy due to heart attack or blood clot Social History - Marital Status: for 34 years - Living Situation: Lives with spouse - Diet: Reports changes in taste perception of food - Physical Activity: Attends gym, used vibratory therapy machine - Stress: Experiencing emotional toll due to cancer diagnosis and treatment - Coping Mechanisms: Engages in daily meditation Review of Systems General: Positive for dizziness upon standing from low position. Negative for weight loss. HEENT: Positive for neck pain. Cardiovascular: Positive for ankle swelling after vibratory therapy. Gastrointestinal: Positive for altered taste sensation. Musculoskeletal: Positive for neck pain. ONCOLOGY HISTORY:?[facility] Hx? 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 S/p left modified radical mastectomy (09/19/2022) S/p 4 cycles of dose dense AC chemotherapy followed by 3 cycles of Taxol in the adjuvant setting. 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 The last dose of Taxol discontinued. Status post adjuvant anastrozole 02/21/2023?11/26/2023. Stopped due to progression Patient was not able to tolerate abemaciclib which caused significant diarrhea. Currently undergoing radiation therapy left chest as well as left neck. 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 02/01/2022: Bilateral screening mammograms? 02/01/2022: Bilateral breast ultrasound 07/20/2022: Ultrasound-guided biopsy of the left breast nodule. 08/15/2022: Ms. Ibarra had breast lumpectomy and sentinel lymph node biopsy 09/07/2022: Echocardiogram showed left ventricular ejection fraction 65%. 09/19/2022: Ms. Ibarra had left modified radical mastectomy 09/28/2022: PET/CT scan 11/16/2022: Patient had first cycle of dose dense AC chemotherapy. 11/20/2022: Patient was seen in the emergency room because of epigastric pain and had EKG done. Troponin levels were in the normal range twice. Echocardiogram showed an ejection fraction of 60-65% Dr. Cortes Ravi saw Ms. Ibarra on 11/25/2022. He cleared Ms. Ibarra to continue chemotherapy from cardiology point of view. 12/28/2022: Ms. Ibarra had a full cycle of dose dense AC. 01/18/2023 - 02/15/2023: Ms. Ibarra had 3 cycles of dose dense Taxol. Unfortunately she was not able to get the fourth cycle of Taxol due to significant peripheral neuropathy. 02/21/2023: Ms. Ibarra is started on adjuvant anastrozole as well as abemaciclib. After taking abemaciclib 150 mg p.o. twice daily for 6 days Ms. Ibarra decided to discontinue it due to significant diarrhea. 03/14/2023: Ms. Ibarra received first dose of adjuvant zoledronic acid. 03/28/2023: Ms. Ibarra is started on adjuvant radiation therapy to the left chest wall as well as left side of neck. 09/20/2023: PET/CT scan 10/01/2023: MRI of the thoracic spine with and without contrast 10/29/2023: MRI of the cervical spine with and without contrast 11/21/2023: Ms. Ibarra is started on radiation therapy to the cervical spine area. 11/23/2023: Bone scan? 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 FAMILY HISTORY: Father:?LUNG Cancer History:?2 AUNTS LUNG MATERNAL AUNT BREAST ?Clone Family Hx? SOCIAL HISTORY: Occupational?History:?RETIRED Education?Level:?6-Attended?Vocational?School,?did?not?graduate Marital?Status:? Tobacco?Pack?per?Day:?0 ETOH?Use:?SOCIAL Drug?Note:?DENIES Social?History?Note:?LIVES?WITH? 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 MEDICATIONS: 1. amlodipine - 25 mg Daily 2. baclofen - 10 mg Daily 3. Colace - 100 mg 1 Capsule Daily 4. Compazine - 10 mg 1 tab As needed 5. FLUoxetine - 10 mg 1 tab Daily 6. gabapentin - 300 mg 3 Capsule 3 tabs three times Daily 7. HYDROcodone-acetaminophen - 7.5-325 mg 1 tab q6 8. Lomotil - 2.5-0.025 mg 1 tab Every 6 Hours 9. meloxicam - 7.5 mg 1 tab Daily 10. omeprazole - 20 mg 1 Daily 11. ribociclib - 200 mg/day (200 mg x 1) 3 tab Daily 12. simvastatin - 20 mg Daily 13. traZODone - 50 mg 1 tab Every day before sleep 14. Vitamin B1 - 1 tab Daily 15. Vitamin D3 - 400 unit 1 Capsule Daily 16. vitamins A, C, and E/dietary supplement,misc comb no.12 - As directed 17. ZINC ACETATE - As directed 18. Zofran - 4 mg tab As needed?Palabra Meds? Medications Last Reconciled by Karo Blackwood MA on 06/30/2024 ALLERGIES: sulfasalazine REVIEW OF SYSTEMS: A complete 14-point review of systems was performed and is negative except as noted in interval history. PHYSICAL EXAMINATION:?[facility] PE? VITAL SIGNS: Temperature?99.4, B/P?104/67, Oxygen?Saturation?95% Weight?128?lbs (Change?since?06/27/24:?4.4?lbs) PAIN: 0 - No pain ECOG Performance Status: 1 - Symptomatic; ambulatory; restricted in strenuous activity EYE: Conjunctivae is moist MOUTH: Oral cavity is dry. CHEST: Clear to auscultation. No wheezes or rales audible. CARDIAC: Rhythm regular, no murmurs or gallops present. ABDOMEN: Soft. No hepatosplenomegaly. EXTREMITIES: No pedal edema or cyanosis. LABORATORY DATA: I have personally reviewed and interpreted each of the patient?s relevant lab tests, abnormal findings are below: Date 05/27/24 06/27/24 ??WHITE?BLOOD?COUNT?(Thou/mm3) ? 1.5?L ??RED?BLOOD?COUNT?(Miln/mm3) ? 3.03?L ??HEMOGLOBIN?(gm/dl) ? 11.1?L ??HEMATOCRIT?(%) ? 32.3?L ??PLATELET?COUNT?(Thou/mm3) ? 61?L ??NEUTROPHILS?%,?AUTO?(%) ? 42 ??LYMPH?%,?AUTO?(%) ? 46 ??NEUTROPHILS,?AUTO?(Thou/mm3) ? 0.6?L ??GLUCOSE,RANDOM?(mg/dL) 130?H 84 ??BLOOD?UREA?NITROGEN?(mg/dL) 15 14 ??CREATININE?(mg/dL) 0.90 0.90 ??SODIUM?(mmol/L) 142 144 ??POTASSIUM?(mmol/L) 3.9 4.0 ??CHLORIDE?(mmol/L) 105 107 ??CrCl?(CandG)?(ml/min) 55.18 52.95 ??AST/SGOT?(Unit/L) 18 18 ??ALT/SGPT?(Unit/L) <?7?L <?7?L ??ALKALINE?PHOSPHATASE?(Unit/L) 69 64 ??BILIRUBIN,?TOTAL?(mg/dL) 0.3 0.5 ??PROTEIN?TOTAL?(gm/dl) 6.1 6.6 ??ALBUMIN,?SERUM?(gm/dl) 3.9 4.3 ??GLOBULIN?(gm/dl) 2.2?L 2.3 ??ALBUMIN/GLOBULIN?RATIO 1.8 1.9 ??CALCIUM,?SERUM?(mg/dL) 9.5 9.3 ??CALCIUM?SERUM?(CORRECTED)?(mg/dL) 9.6 9.3 ??CEA?(O*)?(ng/ml) ? 2.3 Laboratory, Imaging, and Diagnostic Test Results - Date: 05/01/2024 - Echocardiogram: Normal, ejection fraction 68% - Most recent CBC: - WBC: 1.5 (low) - Neutrophils: 0.6 (low) ASSESSMENT/PLAN:?Amadeo Nathan Assessment/Plan? 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 MRI of the cervix spine with and without contrast showed osseous metastatic disease involving C5, C6, C7 vertebral bodies. Completed radiotherapy to the cervical spine Patient started on Faslodex and ribociclib Patient previously was on adjuvant anastrozole started on February 21, 2023. Patient adjuvant abemaciclib 150 mg p.o. twice daily for about 6 days. She was unable to continue due to significant diarrhea. Patient also received first dose of adjuvant zoledronic acid on 03/14/2023. S/p 4 cycles of dose dense AC and 3 cycles of dose dense Taxol. Ms. Ibarra is scheduled to receive third cycle of dose dense Taxol on 02/15/2023. S/p left modified radical mastectomy (09/19/2022) Will hold on Capivasertib which can be used in third line setting Plan is to continue ribociclib and fulvestrant until further progression of disease PET CT scan ordered to see response to treatment CBC CMP CA 15-3 EKG and RTC in 1 month #2 bone mets Zol edronic acid IV every 3 months for bone mets Continue Citracal 1 tablet p.o. twice daily. Bam Coleman, a 69-year-old woman with stage 4 breast cancer (ERPR positive), initially diagnosed as stage 3 in 2022, presenting for follow-up on current treatment with ribociclib and fulvestrant. Stage 4 Breast Cancer (ERPR positive) Assessment: Patient was diagnosed with stage 3 breast cancer in 2022, which has since progressed to stage 4. She completed 4 cycles of EAC and progressed post- adjuvant EstroGel from February 2023 to November 2023. Radiation therapy to the chest and left neck was completed, with additional radiation to the left chest wall in August 2023. MRI cervical spine and bone scan were concerning for osseous disease, leading to 3000 cGy radiation treatment in December 2023. Currently on ribociclib and fulvestrant at 600 mg since April. Patient reports persistent neck pain, which could be due to metastatic disease or arthritis. A PET scan is scheduled for tomorrow to assess treatment response. Overall, the patient reports feeling okay with some dizziness upon standing and changes in taste perception. Plan: - Continue ribociclib and fulvestrant treatment - Hold ribociclib for one week due to low white blood cell count (1.5) and neutrophils (0.6) - Obtain CBC on or Sunday - Ensure white cell count is at least 1 before restarting treatment - Restart ribociclib on Sunday if blood counts improve - Consider dose reduction to 400 mg if low counts persist - Review PET scan results when available (expected in about a week) - Monitor for treatment side effects and disease progression - Consider Elena testing for ultrasensitive cancer recurrence monitoring - Follow up after PET scan results, potentially via telephone appointment or in 4 weeks Cataracts Assessment: Patient inquired about addressing cataracts. Given the current cancer treatment and potential for low blood cell counts, timing of the procedure needs to be carefully considered. Plan: - Schedule cataract surgery, coinciding with the start of the next ribociclib cycle and do not take ribociclib for that month and cont fulvestrant - Take a one-week break from ribociclib before cataract surgery - Ensure blood counts are adequate before proceeding with surgery Nutritional Status Assessment: Patient reports stable weight but mentions that food doesn't taste the same anymore, which could potentially impact nutritional intake. Plan: - Encourage a diet rich in vegetables, chicken, and fish - Avoid pork and other red meats - Monitor weight and nutritional status at follow-up visits Psychosocial Concerns Assessment: Patient's expresses emotional distress due to the impact of cancer on their relationship and overall quality of life. The couple has been together for 34 years, and the cancer diagnosis is taking a toll on their relationship. Plan: - Encourage daily meditation for positive energy - Provide emotional support and reassurance about the potential for long-term survival with current treatments - Consider referral for psychosocial support or counseling if needed #3 pain management Patient to follow with Dr. Ortiz for pain management Ordered gabapentin 300 mg 3 times daily for better neuropathic pain control ORDERS: Order # Description [id number] CBC + Comprehensive Metabolic Panel + [facility] + CA 27.29 [id number] Lab Appointment [id number] CBC + Comprehensive Metabolic Panel + [facility] + CA 27.29 [id number] Lab Appointment [id number] CBC + Comprehensive Metabolic Panel + [facility] + CA 27.29 [id number] Lab Appointment [id number] CBC + Comprehensive Metabolic Panel + [facility] + CA 27.29 [id number] Lab Appointment [id number] CBC + Comprehensive Metabolic Panel + [facility] + CA 27.29 [id number] Lab Appointment [id number] Infusion 1 Hour [id number] CBC + Comprehensive Metabolic Panel + [facility] + CA 27.29 [id number] Lab Appointment [id number] CBC + Comprehensive Metabolic Panel + [facility] + CA 27.29 [id number] Lab Appointment [id number] Infusion 1 Hour [id number] Infusion 1 Hour RETURN TO CLINIC: BILLING AND COMPLIANCE: I reviewed external records from providers outside my specialty as summarized above. I spent a total of 50 minutes on this patient?s care on the day of their visit excluding time spent related to any billed procedures. This time includes time spent with the patient as well as time spent documenting in the medical record, reviewing patients records and tests, obtaining history, placing orders, communicating with other healthcare professionals, counseling the patient, family or caregiver, and/or care coordination for the diagnoses above. Electronically Signed by: Inocente Nathan MD T: 1:15 AM CC: Baljeet,? PCP: Jewel Dolan Referring: Jewel Dolan This document was completed utilizing speech recognition software. Grammatical errors, random word insertions, pronoun errors, and incomplete sentences are an occasional consequence of this system due to software limitations, ambient noise, and hardware issues. Any formal questions or concerns about the content, text or information contained within the body of this dictation should be directly addressed to the provider for clarification.
[2024-07-01 06:23] LABS: CA 27.29* 52 U/mL (LESS THAN 38)
== END 2024-07-02 23:59 | disposition home or self-care (01) ==
LOC: SCTC 15:01
PROVIDERS: PCP Family Medicine; Referring Provider Family Medicine; Visit Provider Internal Medicine Hematology & Oncology
DX: Z51.11 Encounter for antineoplastic chemotherapy (principal); C50.812 Malignant neoplasm of overlapping sites of left female breast; C79.51 Secondary malignant neoplasm of bone; Z17.0 Estrogen receptor positive status [ER+]; Z17.21 Progesterone receptor positive status; Z17.32 Human epidermal growth factor receptor 2 negative status; Z90.12 Acquired absence of left breast and nipple; Z92.3 Personal history of irradiation; R42 Dizziness and giddiness; M54.2 Cervicalgia
CPT/HCPCS: 36591; 80053; 82378; 85025; 86300; 96402; 99212; A4216; J1642; J9395; G0463

== ENCOUNTER → 2024-07-01 | Outpatient (CLI) | payer MEDICARE, SELFPAY ==
--- NOTE | 2024-07-01 12:30 | XR_ITS ---
EXAMINATION: PET/CT FUSION SKULL TO THIGH EXAM DATE AND TIME: July 01, 2024 1324 hours Comparison PET/CT scan February 28, 2024 INDICATIONS: Diagnosis breast cancer post treatment restaging, 10 mm weakly hypermetabolic pulmonary nodule right lower lobe on PET CT scan February 28, 2024 CTDI:vol (mGy) 4.03 DLP: (mGycm) 368 PROCEDURE: 14.2 mCi FDG was administered intravenously To allow for distribution and uptake of radiotracer, the patient was allowed to rest quietly in a shielded room. Imaging was performed on an integrated 16-slice PET/CT scanner, with scanning from the skull base to the mid thigh. Serum blood glucose at the time of the injection was measured 90 mg/dL. CT scanning was performed without oral or intravenous contrast material. FINDINGS: Head and Neck: There is no silvana hypermetabolism in the neck. The visualized portions of the brain are normal in appearance on CT. Chest: Interval weakly hypermetabolic soft tissue pulmonary nodule left upper lobe, 18 mm Surrounding mild nodular parenchymal disease weakly hypermetabolic Weakly hypermetabolic pulmonary nodule right lower lobe now measures 12.6 mm compared to 10.4 mm on February 28, 2024 Abdomen and Pelvis: There is no silvana hypermetabolism in retroperitoneal or pelvic chains. The spleen is normal in size and FDG avidity. Musculoskeletal: Marrow uptake is within normal range. IMPRESSION: Compared with the CT scan February 28, 2024: New weakly hypermetabolic pulmonary nodule 18 mm left upper lobe, enlarging hypermetabolic pulmonary nodule right lower lobe, 12.6 mm compared to 10.4 mm on the February 28, 2024 exam
== END | disposition home or self-care (01) ==
LOC: CDIM 12:11
PROVIDERS: PCP Family Medicine; Referring Provider Internal Medicine Hematology & Oncology; Visit Provider Internal Medicine Hematology & Oncology
DX: R91.8 Other nonspecific abnormal finding of lung field (principal); C50.412 Malignant neoplasm of upper-outer quadrant of left female breast
CPT/HCPCS: 78815; A9552

== ENCOUNTER → 2024-07-11 | Outpatient (CLI) | payer MEDICARE, SELFPAY ==
--- NOTE | 2024-07-11 14:00 | ECHO_ITS ---
Transthoracic Echo Report Ht (in): 61 Wt (lb): 126 Exam Location: Echo Lab Status: Preadmit Assistant County Engineer: CARLIE Victor^^^^ Indications: Procedure Performed: BP: / HR: MEASUREMENTS (Male / Female) Normal Values 2D ECHO LV Diastolic Diameter PLAX 4.3 cm 4.2 - 5.9 / 3.9 - 5.3 cm LV Systolic Diameter PLAX 3.0 cm IVS Diastolic Thickness 0.9 cm 0.6 - 1.0 / 0.6 - 0.9 cm LVPW Diastolic Thickness 0.8 cm 0.6 - 1.0 / 0.6 - 0.9 cm LV Relative Wall Thickness 0.4 LVOT Diameter 1.8 cm Aortic Root Diameter 3.3 cm LA Systolic Diameter LX 3.1 cm 3.0 - 4.0 / 2.7 - 3.8 cm LV Ejection Fraction MOD BP 58.0 % >= 55 % LV Ejection Fraction MOD 4C 59.0 % LV Ejection Fraction 4C AL 58.5 % LV Ejection Fraction MOD 2C 61.1 % LV Ejection Fraction 2C AL 62.3 % LA Volume Index 21.3 cm?/m? 16 - 28 cm?/m? Ascending Aorta Diameter 3.1 cm DOPPLER AV Peak Velocity 104.4 cm/s AV Peak Gradient 4.4 mmHg AV Mean Gradient 2.5 mmHg AV Velocity Time Integral 24.5 cm AI Peak Velocity 200.3 cm/s AI Peak Gradient 16.1 mmHg AI Pressure Half Time 571.0 ms LVOT Peak Velocity 90.2 cm/s LVOT Peak Gradient 3.3 mmHg LVOT Velocity Time Integral 20.9 cm AV Area Cont Eq vti 2.2 cm? AV Area Cont Eq pk 2.2 cm? MV Area PHT 4.8 cm? Mitral E Point Velocity 57.3 cm/s Mitral A Point Velocity 72.8 cm/s Mitral E to A Ratio 0.8 LV E' Lateral Velocity 8.5 cm/s Mitral E to LV E' Lateral Ratio 6.7 LV E' Septal Velocity 5.8 cm/s Mitral E to LV E' Septal Ratio 9.9 TR Peak Velocity 247.5 cm/s TR Peak Gradient 24.5 mmHg PV Peak Velocity 91.8 cm/s PV Peak Gradient 3.4 mmHg RVOT Peak Velocity 43.6 cm/s FINDINGS Left Ventricle Normal left ventricular size, wall thickness, systolic function with no obvious regional wall motion abnormalities. There is grade I diastolic dysfunction of the left ventricle (impaired relaxation pattern). The left ventricular ejection fraction is normal, estimated at 55-60%. Right Ventricle The right ventricle is normal in size and systolic function. The estimated right ventricular systolic pressure, 26 mmHg. Left Atrium The left atrium is normal by two-dimensional, color flow and Doppler imaging with no structural abnormalities, no thrombus formation present. Right Atrium The right atrium is normal by two-dimensional imaging, color flow and Doppler imaging with no structural abnormalities, no thrombus formation present. Atrial Septum The interatrial septum appears normal with no evidence of a shunt. Mitral Valve Trace to mild mitral regurgitation. Mild mitral annular calcification. Aortic Valve Diffuse calcification of the aortic valve. Mild thickening of the aortic valve leaflets. Tricuspid Valve There is mild tricuspid valve regurgitation. Pulmonic Valve Trivial pulmonic valve regurgitation. Vessels The pulmonary artery appears normal. The inferior vena cava pulmonary and hepatic veins appear normal. Pericardium The pericardium is normal by two-dimensional imaging. There is no significant pericardial effusion. CONCLUSIONS indication: cancer center Normal left ventricular size and function. Approximate ejection fraction is 55-60%. RV appears normal with RVSP 26 mmHg Trace mitral and trace tricuspid regurgitation Kemi Lindsay (Electronically Signed) Final Date: 14 Jul 2024 08:34
== END | disposition home or self-care (01) ==
PROVIDERS: PCP Family Medicine; Referring Provider Internal Medicine Hematology & Oncology; Visit Provider Internal Medicine Hematology & Oncology
DX: C50.412 Malignant neoplasm of upper-outer quadrant of left female breast (principal)
CPT/HCPCS: 85025; 93306

== ENCOUNTER → 2024-07-16 | Outpatient (CLI) | payer MEDICARE, SELFPAY ==
[2024-07-16 08:38] LABS: Misc Send Out* See Sep Rpt
== END | disposition home or self-care (01) ==
PROVIDERS: PCP Family Medicine; Referring Provider Internal Medicine Hematology & Oncology; Visit Provider Internal Medicine Hematology & Oncology
DX: C50.412 Malignant neoplasm of upper-outer quadrant of left female breast (principal); C79.51 Secondary malignant neoplasm of bone

== ENCOUNTER 2024-07-31 13:51 | Outpatient (RCR) | payer MEDICARE, SELFPAY ==
[2024-07-03 09:53] LABS: Basophils % (Auto) 2 % (0-2.5); Eosinophils % (Auto) 1 % (0-10); Hematocrit 31.7 % (36.0-46.0); Hemoglobin 10.9 g/dL (12.0-16.0); Immature Granulocytes % (Auto) 0 % (0-0); Lymphocytes # (Auto) 0.6 Thou/mm3 (1.0-4.8); Lymphocytes % (Auto) 35 % (10-50); Mean Corpuscular HGB Conc 34.4 g/dl (31.0-37.0); Mean Corpuscular Hemoglobin 36.5 pg (25.0-35.0); Mean Corpuscular Volume 106 fL (80-100); Monocytes # (Auto) 0.3 Thou/mm3 (0.0-0.8); Monocytes % (Auto) 14 % (0-12); Neutrophils # (Auto) 0.9 Thou/mm3 (1.8-7.7); Neutrophils % (Auto) 49 % (37-80); Nucleated Red Blood Cell % 0 /100 WBC (0); Platelet Count 120 Thou/mm3 (140-440); RDW Standard Deviation 71.7 fL (36.4-46.3); Red Blood Count 2.99 Miln/mm3 (4.00-5.20)
[2024-07-03 10:13] LABS: White Blood Count 1.8 Thou/mm3 (3.6-11.0)
[2024-07-03 10:30] LABS: Alanine Aminotransferase < 7 U/L (10-49); Albumin, Serum 4.1 gm/dL (3.4-4.8); Alkaline Phosphatase 59 U/L (46-116); Anion Gap 11 (7-16); Aspartate Amino Transferase 18 U/L (0-34); BUN/Creatinine Ratio 18 Ratio (12-20); Bilirubin,Total 0.3 mg/dL (0.3-1.2); Blood Urea Nitrogen 14 mg/dL (9-23); Calcium 8.8 mg/dL (8.3-10.6); Calcium (Corrected) 8.8 mg/dL (8.5-10.1); Carbon Dioxide 25.5 mMol/L (20.0-31.0); Chloride 108 mMol/L (98-107); Creatinine (Component) 0.8 mg/dL (0.6-1.3); Globulin 2.1 gm/dL (2.3-3.5); Glucose 87 mg/dL (74-106); Osmolality,Calculated 286 (275-295); Potassium 4.1 mMol/L (3.4-5.1); Sodium 144 mMol/L (136-145); Total Protein 6.2 gm/dL (5.7-8.2); eGFR > 60 See Note
[2024-07-08 07:03] LABS: CA 27.29* 48 U/mL (LESS THAN 38)
[2024-07-11 11:09] LABS: Basophils # (Auto) 0.1 Thou/mm3 (0.0-0.2); Basophils % (Auto) 2 % (0-2.5); Eosinophils # (Auto) 0.1 Thou/mm3 (0.0-0.5); Eosinophils % (Auto) 2 % (0-10); Hematocrit 34.7 % (36.0-46.0); Hemoglobin 11.7 g/dL (12.0-16.0); Immature Granulocytes % (Auto) 0 % (0-0); Immature Granulocytes Auto 0.01 Thou/mm3 (0.00-0.00); Lymphocytes % (Auto) 31 % (10-50); Mean Corpuscular HGB Conc 33.7 g/dl (31.0-37.0); Mean Corpuscular Hemoglobin 35.6 pg (25.0-35.0); Mean Corpuscular Volume 106 fL (80-100); Monocytes # (Auto) 0.3 Thou/mm3 (0.0-0.8); Monocytes % (Auto) 9 % (0-12); Neutrophils # (Auto) 1.7 Thou/mm3 (1.8-7.7); Neutrophils % (Auto) 56 % (37-80); Nucleated Red Blood Cell % 0 /100 WBC (0); Platelet Count 267 Thou/mm3 (140-440); RDW Standard Deviation 67.1 fL (36.4-46.3); Red Blood Count 3.29 Miln/mm3 (4.00-5.20)
[2024-07-30 15:48] LABS: Basophils % (Auto) 0 % (0-2.5); Eosinophils # (Auto) 0.1 Thou/mm3 (0.0-0.5); Eosinophils % (Auto) 3 % (0-10); Hematocrit 29.7 % (36.0-46.0); Hemoglobin 10.4 g/dL (12.0-16.0); Immature Granulocytes % (Auto) 2 % (0-0); Immature Granulocytes Auto 0.04 Thou/mm3 (0.00-0.00); Lymphocytes # (Auto) 0.7 Thou/mm3 (1.0-4.8); Lymphocytes % (Auto) 28 % (10-50); Mean Corpuscular Hemoglobin 35.6 pg (25.0-35.0); Mean Corpuscular Volume 102 fL (80-100); Monocytes # (Auto) 0.1 Thou/mm3 (0.0-0.8); Monocytes % (Auto) 5 % (0-12); Neutrophils # (Auto) 1.5 Thou/mm3 (1.8-7.7); Neutrophils % (Auto) 62 % (37-80); Nucleated Red Blood Cell % 0 /100 WBC (0); Platelet Count 104 Thou/mm3 (140-440); RDW Standard Deviation 61.3 fL (36.4-46.3); Red Blood Count 2.92 Miln/mm3 (4.00-5.20)
[2024-07-30 16:04] LABS: White Blood Count 2.4 Thou/mm3 (3.6-11.0)
[2024-07-30 16:17] LABS: Carcinoembryonic Antigen 2.3 ng/mL (0.0-5.0)
[2024-07-30 16:22] LABS: Alanine Aminotransferase 8 U/L (10-49); Albumin, Serum 4.1 gm/dL (3.4-4.8); Albumin/Globulin Ratio 2.3 (1.2-2.2); Alkaline Phosphatase 55 U/L (46-116); Anion Gap 8 (7-16); Aspartate Amino Transferase 20 U/L (0-34); BUN/Creatinine Ratio 18 Ratio (12-20); Bilirubin,Total 0.4 mg/dL (0.3-1.2); Blood Urea Nitrogen 18 mg/dL (9-23); Calcium 8.6 mg/dL (8.3-10.6); Calcium (Corrected) 8.6 mg/dL (8.5-10.1); Carbon Dioxide 28.1 mMol/L (20.0-31.0); Chloride 106 mMol/L (98-107); Globulin 1.8 gm/dL (2.3-3.5); Glucose 99 mg/dL (74-106); Osmolality,Calculated 285 (275-295); Potassium 4.2 mMol/L (3.4-5.1); Sodium 142 mMol/L (136-145); Total Protein 5.9 gm/dL (5.7-8.2); eGFR > 60 See Note
[2024-08-05 06:33] LABS: CA 27.29* 43 U/mL (LESS THAN 38)
== END 2024-08-02 23:59 | disposition home or self-care (01) ==
LOC: SCTC 13:51
PROVIDERS: Internal Medicine Hematology & Oncology; PCP Family Medicine; Referring Provider Family Medicine; Visit Provider Radiology Therapeutic Radiology
DX: Z51.11 Encounter for antineoplastic chemotherapy (principal); C50.812 Malignant neoplasm of overlapping sites of left female breast; Z17.0 Estrogen receptor positive status [ER+]; Z17.21 Progesterone receptor positive status; Z17.32 Human epidermal growth factor receptor 2 negative status; C79.51 Secondary malignant neoplasm of bone; R91.1 Solitary pulmonary nodule; Z90.12 Acquired absence of left breast and nipple
CPT/HCPCS: 36591; 80053; 82378; 85025; 86300; 96402; 99213; A4216; J1642; J9395; G0463

== ENCOUNTER 2024-09-01 14:23 | Outpatient (RCR) | payer MEDICARE, SELFPAY ==
[2024-08-05 16:46] LABS: Basophils % (Auto) 1 % (0-2.5); Eosinophils % (Auto) 2 % (0-10); Hematocrit 30.3 % (36.0-46.0); Hemoglobin 10.6 g/dL (12.0-16.0); Immature Granulocytes % (Auto) 1 % (0-0); Immature Granulocytes Auto 0.01 Thou/mm3 (0.00-0.00); Lymphocytes # (Auto) 0.7 Thou/mm3 (1.0-4.8); Lymphocytes % (Auto) 37 % (10-50); Mean Corpuscular Hemoglobin 35.5 pg (25.0-35.0); Mean Corpuscular Volume 101 fL (80-100); Monocytes # (Auto) 0.1 Thou/mm3 (0.0-0.8); Monocytes % (Auto) 7 % (0-12); Neutrophils # (Auto) 1.1 Thou/mm3 (1.8-7.7); Neutrophils % (Auto) 53 % (37-80); Nucleated Red Blood Cell % 0 /100 WBC (0); RDW Standard Deviation 63.1 fL (36.4-46.3); Red Blood Count 2.99 Miln/mm3 (4.00-5.20)
[2024-08-05 16:50] LABS: Platelet Count 75 Thou/mm3 (140-440)
[2024-08-05 17:18] LABS: Alanine Aminotransferase 9 U/L (10-49); Albumin, Serum 4.2 gm/dL (3.4-4.8); Alkaline Phosphatase 61 U/L (46-116); Anion Gap 12 (7-16); Aspartate Amino Transferase 19 U/L (0-34); BUN/Creatinine Ratio 14 Ratio (12-20); Bilirubin,Total 0.5 mg/dL (0.3-1.2); Blood Urea Nitrogen 14 mg/dL (9-23); Calcium 8.6 mg/dL (8.3-10.6); Calcium (Corrected) 8.6 mg/dL (8.5-10.1); Carbon Dioxide 27.8 mMol/L (20.0-31.0); Chloride 104 mMol/L (98-107); Globulin 2.1 gm/dL (2.3-3.5); Glucose 136 mg/dL (74-106); Osmolality,Calculated 289 (275-295); Potassium 3.7 mMol/L (3.4-5.1); Sodium 144 mMol/L (136-145); Total Protein 6.3 gm/dL (5.7-8.2); eGFR > 60 See Note
[2024-08-05 17:47] LABS: Slide Review Platelets confirmed
--- NOTE | 2024-08-07 09:50 | CTCFLWUP_ITS ---
Patient: JEROME IBARRA : 1955 Page 2 of 2 FOLLOW UP NOTE DATE OF SERVICE: 08/06/2024 NAME: JEROME IBARRA ACCOUNT: [id number] : 1955 AGE: 69 INTERVAL HISTORY: Subjective: Chief Complaint Follow-up for cancer treatment, hot flashes, loose bowels, feeling ewy in the last couple of days History of Present Illness Guillermo Coleman, a patient with a history of cancer, presents for follow-up of her ongoing treatment with Kisqali. She reports experiencing increased hot flashes, which she attributes to her hormone-suppressing medication. The patient also notes feeling unwell for the first couple of days after starting her medication cycle, but then feeling better as time progresses. Jerome describes having loose bowels and feeling ewy sometimes, particularly in the last couple of days, despite currently being on a break from Kisqali. She mentions that these symptoms are less severe compared to her previous treatment with Verzenio, which caused diarrhea. The patient is scheduled for surgery on her forearm on Sunday to address a recently diagnosed squamous cell cancer. The patient reports adherence to her prescribed Kisqali regimen, currently taking 600 mg doses. She is on a scheduled break from the medication and plans to restart on the following Sunday. Jerome also mentions a recent blood test ([facility]) that was completed a couple of days after her last visit, though the results are not yet available. Additionally, Jerome notes significant dandruff and scalp issues, which she plans to discuss with her tub mender at an upcoming appointment next Sunday. Medications and Supplements - Kisqali 600 mg - Taking breaks between cycles - Causes hot flashes, loose bowels, and feeling unwell in the first couple of days - Less bothersome than Verzenio - Lowers white blood cell count and platelets - Verzenio - Discontinued - Caused more side effects than Kisqali Review of Systems General: Positive for hot flashes. Skin: Positive for dandruff. Gastrointestinal: Positive for loose bowels. Objective: Physical Examination Skin: Significant dandruff observed on scalp, appearing stuck to the skin. Laboratory, Imaging, and Diagnostic Test Results - Date: Not specified - CBC: WBC 2.0 (low), Platelets 75 (low) - Echocardiogram: Normal heart function - PET scan (07/01/2024): 12.6 mm nodule (increased from 10.4 mm) Surgical History - Radiation therapy to the chest and left neck - Additional radiation therapy to the left chest wall in August 2023 - Radiation therapy (3000 cGy) in December 2023 Medications and Supplements - Ribociclib (Kisqali) 600 mg - Started recently - Causing low white blood cell count and neutrophils - Fulvestrant - Abemaciclib - Discontinued due to significant diarrhea - EstroGel - Used from February 2023 to November 2023 - Discontinued due to disease progression Family History - Father: Acute myeloid leukemia diagnosed at age 64, shortly after starting chemotherapy due to heart attack or blood clot Social History - Marital Status: for 34 years - Living Situation: Lives with spouse - Diet: Reports changes in taste perception of food - Physical Activity: Attends gym, used vibratory therapy machine - Stress: Experiencing emotional toll due to cancer diagnosis and treatment - Coping Mechanisms: Engages in daily meditation Review of Systems General: Positive for dizziness upon standing from low position. Negative for weight loss. HEENT: Positive for neck pain. Cardiovascular: Positive for ankle swelling after vibratory therapy. Gastrointestinal: Positive for altered taste sensation. Musculoskeletal: Positive for neck pain. ONCOLOGY HISTORY:?[facility] Oncology Hx? 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 S/p left modified radical mastectomy (09/19/2022) S/p 4 cycles of dose dense AC chemotherapy followed by 3 cycles of Taxol in the adjuvant setting. 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 The last dose of Taxol discontinued. Status post adjuvant anastrozole 02/21/2023?11/26/2023. Stopped due to progression Patient was not able to tolerate abemaciclib which caused significant diarrhea. Currently undergoing radiation therapy left chest as well as left neck. 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 02/01/2022: Bilateral screening mammograms? 02/01/2022: Bilateral breast ultrasound 07/20/2022: Ultrasound-guided biopsy of the left breast nodule. 08/15/2022: Ms. Ibarra had breast lumpectomy and sentinel lymph node biopsy 09/07/2022: Echocardiogram showed left ventricular ejection fraction 65%. 09/19/2022: Ms. Ibarra had left modified radical mastectomy 09/28/2022: PET/CT scan 11/16/2022: Patient had first cycle of dose dense AC chemotherapy. 11/20/2022: Patient was seen in the emergency room because of epigastric pain and had EKG done. Troponin levels were in the normal range twice. Echocardiogram showed an ejection fraction of 60-65% Dr. Cortes Ravi saw Ms. Ibarra on 11/25/2022. He cleared Ms. Ibarra to continue chemotherapy from cardiology point of view. 12/28/2022: Ms. Ibarra had a full cycle of dose dense AC. 01/18/2023 - 02/15/2023: Ms. Ibarra had 3 cycles of dose dense Taxol. Unfortunately she was not able to get the fourth cycle of Taxol due to significant peripheral neuropathy. 02/21/2023: Ms. Ibarra is started on adjuvant anastrozole as well as abemaciclib. After taking abemaciclib 150 mg p.o. twice daily for 6 days Ms. Ibarra decided to discontinue it due to significant diarrhea. 03/14/2023: Ms. Ibarra received first dose of adjuvant zoledronic acid. 03/28/2023: Ms. Ibarra is started on adjuvant radiation therapy to the left chest wall as well as left side of neck. 09/20/2023: PET/CT scan 10/01/2023: MRI of the thoracic spine with and without contrast 10/29/2023: MRI of the cervical spine with and without contrast 11/21/2023: Ms. Ibarra is started on radiation therapy to the cervical spine area. 11/23/2023: Bone scan? 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 FAMILY HISTORY: Father:?LUNG Cancer History:?2 AUNTS LUNG MATERNAL AUNT BREAST ?Clone Family Hx? SOCIAL HISTORY: Occupational?History:?RETIRED Education?Level:?6-Attended?Vocational?School,?did?not?graduate Marital?Status:? Tobacco?Pack?per?Day:?0 ETOH?Use:?SOCIAL Drug?Note:?DENIES Social?History?Note:?LIVES?WITH? 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 MEDICATIONS: 1. amlodipine - 25 mg Daily 2. baclofen - 10 mg Daily 3. Colace - 100 mg 1 Capsule Daily 4. Compazine - 10 mg 1 tab As needed 5. FLUoxetine - 10 mg 1 tab Daily 6. gabapentin - 300 mg 3 Capsule 3 tabs three times Daily 7. HYDROcodone-acetaminophen - 7.5-325 mg 1 tab q6 8. Lomotil - 2.5-0.025 mg 1 tab Every 6 Hours 9. meloxicam - 7.5 mg 1 tab Daily 10. omeprazole - 20 mg 1 Daily 11. ribociclib - 200 mg/day (200 mg x 1) 3 tab Daily 12. simvastatin - 20 mg Daily 13. traZODone - 50 mg 1 tab Every day before sleep 14. Vitamin B1 - 1 tab Daily 15. Vitamin D3 - 400 unit 1 Capsule Daily 16. vitamins A, C, and E/dietary supplement,misc comb no.12 - As directed 17. ZINC ACETATE - As directed 18. Zofran - 4 mg tab As needed?[facility]ra Meds? Medications Last Reconciled by Mirian Figueroa MA on 08/06/2024 ALLERGIES: sulfasalazine REVIEW OF SYSTEMS: A complete 14-point review of systems was performed and is negative except as noted in interval history. PHYSICAL EXAMINATION:?[facility] PE? VITAL SIGNS: Temperature?98.6, B/P?129/83, Oxygen?Saturation?95% Weight?126?lbs (Change?since?08/05/24:?-1.4?lbs) PAIN: 0 - No pain ECOG Performance Status: 0 - Asymptomatic and fully active EYE: Conjunctivae is moist MOUTH: Oral cavity is dry. CHEST: Clear to auscultation. No wheezes or rales audible. CARDIAC: Rhythm regular, no murmurs or gallops present. ABDOMEN: Soft. No hepatosplenomegaly. EXTREMITIES: No pedal edema or cyanosis. LABORATORY DATA: I have personally reviewed and interpreted each of the patient?s relevant lab tests, abnormal findings are below: Date 07/30/24 08/05/24 ??WHITE?BLOOD?COUNT?(Thou/mm3) 2.4?L 2.0?L ??RED?BLOOD?COUNT?(Miln/mm3) 2.92?L 2.99?L ??HEMOGLOBIN?(gm/dl) 10.4?L 10.6?L ??HEMATOCRIT?(%) 29.7?L 30.3?L ??PLATELET?COUNT?(Thou/mm3) 104?L 75?L ??NEUTROPHILS?%,?AUTO?(%) 62 53 ??LYMPH?%,?AUTO?(%) 28 37 ??NEUTROPHILS,?AUTO?(Thou/mm3) 1.5?L 1.1?L ??GLUCOSE,RANDOM?(mg/dL) 99 136?H ??BLOOD?UREA?NITROGEN?(mg/dL) 18 14 ??CREATININE?(mg/dL) 1.00 1.00 ??SODIUM?(mmol/L) 142 144 ??POTASSIUM?(mmol/L) 4.2 3.7 ??CHLORIDE?(mmol/L) 106 104 ??CrCl?(CandG)?(ml/min) 50.43 49.12 ??AST/SGOT?(Unit/L) 20 19 ??ALT/SGPT?(Unit/L) 8?L 9?L ??ALKALINE?PHOSPHATASE?(Unit/L) 55 61 ??BILIRUBIN,?TOTAL?(mg/dL) 0.4 0.5 ??PROTEIN?TOTAL?(gm/dl) 5.9 6.3 ??ALBUMIN,?SERUM?(gm/dl) 4.1 4.2 ??GLOBULIN?(gm/dl) 1.8?L 2.1?L ??ALBUMIN/GLOBULIN?RATIO 2.3?H 2.0 ??CALCIUM,?SERUM?(mg/dL) 8.6 8.6 ??CALCIUM?SERUM?(CORRECTED)?(mg/dL) 8.6 8.6 ASSESSMENT/PLAN:?Amadeo Nathan Assessment/Plan? #1 stage IV metastatic breast cancer with bone mets, ER positive MI negative HER2/colette negative AKT1 mutation positive Bone scan showed osseous metastatic disease as documented above. MRI of the cervix spine with and without contrast showed osseous metastatic disease involving C5, C6, C7 vertebral bodies. Completed radiotherapy to the cervical spine Patient started on Faslodex and ribociclib Patient previously was on adjuvant anastrozole started on February 21, 2023. Patient adjuvant abemaciclib 150 mg p.o. twice daily for about 6 days. She was unable to continue due to significant diarrhea. Patient also received first dose of adjuvant zoledronic acid on 03/14/2023. S/p 4 cycles of dose dense AC and 3 cycles of dose dense Taxol. Ms. Ibarra is scheduled to receive third cycle of dose dense Taxol on 02/15/2023. S/p left modified radical mastectomy (09/19/2022) Will hold on Capivasertib which can be used in third line setting Plan is to continue ribociclib and fulvestrant until further progression of disease PET CT scan ordered to see response to treatment CBC CMP CA 15-3 EKG and RTC in 1 month #2 bone mets Zol edronic acid IV every 3 months for bone mets Continue Citracal 1 tablet p.o. twice daily. Bam Coleman, a 69-year-old woman with stage 4 breast cancer (ERPR positive), initially diagnosed as stage 3 in 2022, presenting for follow-up on current treatment with ribociclib and fulvestrant. Patient is currently undergoing treatment with Kisqali for metastatic cancer. A PET scan on July 01 showed an increase in a nodule size from 10.4 mm to 12.6 mm, which prompted the change in treatment. The patient started Kisqali 600 mg on May 05. Recent mutation burden tests came back negative. An echocardiogram showed normal heart function. Current blood work shows low white cell count (2) and low platelets (75), likely due to Kisqali. The patient reports experiencing hot flashes, possibly related to hormone suppression therapy. She also mentions feeling unwell for the first couple of days after starting Kisqali, with loose bowels and general malaise, but notes that these symptoms are less severe than with previous treatment (Verzenio). Plan: - Continue Kisqali 600 mg (patient to restart on Sunday after current break) - Order PET scan for September (after 2nd week) - Schedule telephone appointment in 4 weeks to review [facility] test results - Patient to have blood work done on Sunday before restarting Kisqali, or on Sunday if Sunday is not possible - Patient to contact Cami (likely a nurse or career services assistant) on Sunday evening or Sunday to review blood work results - Consider dose reduction of Kisqali based on next PET scan results - Monitor for side effects and adjust treatment as necessary Squamous Cell Carcinoma of Forearm Assessment: Patient has been diagnosed with squamous cell carcinoma on the forearm. Surgery is scheduled for Sunday to address this issue. Plan: - Proceed with scheduled surgery on Sunday for squamous cell carcinoma on forearm Scalp Condition (Possible Seborrheic Dermatitis) Assessment: Patient presents with significant dandruff and scaling on the scalp, possibly indicative of seborrheic dermatitis. Plan: - Recommend use of tar gel shampoo - Suggest application of heated coconut oil with brad to scalp before shampooing - Patient to consult with tub mender at upcoming appointment next Sunday for further evaluation and possible prescription treatment Medical History - Stage 4 breast cancer, ERPR positive - Stage 3 breast cancer, initially diagnosed in 2022 - Dizziness when standing up from a low position - Altered taste perception - Neck pain - Cataracts - Ankle swelling after vibratory therapy Stage 4 Breast Cancer (ERPR positive) Assessment: Patient was diagnosed with stage 3 breast cancer in 2022, which has since progressed to stage 4. She completed 4 cycles of EAC and progressed post- adjuvant EstroGel from February 2023 to November 2023. Radiation therapy to the chest and left neck was completed, with additional radiation to the left chest wall in August 2023. MRI cervical spine and bone scan were concerning for osseous disease, leading to 3000 cGy radiation treatment in December 2023. Currently on ribociclib and fulvestrant at 600 mg since April. Patient reports persistent neck pain, which could be due to metastatic disease or arthritis. A PET scan is scheduled for tomorrow to assess treatment response. Overall, the patient reports feeling okay with some dizziness upon standing and changes in taste perception. Plan: - Continue ribociclib and fulvestrant treatment - Hold ribociclib for one week due to low white blood cell count (1.5) and neutrophils (0.6) - Obtain CBC on or Sunday - Ensure white cell count is at least 1 before restarting treatment - Restart ribociclib on Sunday if blood counts improve - Consider dose reduction to 400 mg if low counts persist - Review PET scan results when available (expected in about a week) - Monitor for treatment side effects and disease progression - Consider Elena testing for ultrasensitive cancer recurrence monitoring - Follow up after PET scan results, potentially via telephone appointment or in 4 weeks Cataracts Assessment: Patient inquired about addressing cataracts. Given the current cancer treatment and potential for low blood cell counts, timing of the procedure needs to be carefully considered. Plan: - Schedule cataract surgery, coinciding with the start of the next ribociclib cycle and do not take ribociclib for that month and cont fulvestrant - Take a one-week break from ribociclib before cataract surgery - Ensure blood counts are adequate before proceeding with surgery Nutritional Status Assessment: Patient reports stable weight but mentions that food doesn't taste the same anymore, which could potentially impact nutritional intake. Plan: - Encourage a diet rich in vegetables, chicken, and fish - Avoid pork and other red meats - Monitor weight and nutritional status at follow-up visits Psychosocial Concerns Assessment: Patient's expresses emotional distress due to the impact of cancer on their relationship and overall quality of life. The couple has been together for 34 years, and the cancer diagnosis is taking a toll on their relationship. Plan: - Encourage daily meditation for positive energy - Provide emotional support and reassurance about the potential for long-term survival with current treatments - Consider referral for psychosocial support or counseling if needed #3 pain management Patient to follow with Dr. Ortiz for pain management Ordered gabapentin 300 mg 3 times daily for better neuropathic pain control ORDERS: Order # Description [id number] CBC + Comprehensive Metabolic Panel + [facility] + CA 27.29 [id number] Lab Appointment [id number] CBC + Comprehensive Metabolic Panel + [facility] + CA 27.29 [id number] Lab Appointment [id number] CBC + Comprehensive Metabolic Panel + [facility] + CA 27.29 [id number] Lab Appointment [id number] Infusion 1 Hour [id number] CBC + Comprehensive Metabolic Panel + [facility] + CA 27.29 [id number] Lab Appointment [id number] CBC + Comprehensive Metabolic Panel + [facility] + CA 27.29 [id number] Lab Appointment [id number] Infusion 1 Hour [id number] Infusion 1 Hour RETURN TO CLINIC: BILLING AND COMPLIANCE: I reviewed external records from providers outside my specialty as summarized above. I spent a total of 50 minutes on this patient?s care on the day of their visit excluding time spent related to any billed procedures. This time includes time spent with the patient as well as time spent documenting in the medical record, reviewing patients records and tests, obtaining history, placing orders, communicating with other healthcare professionals, counseling the patient, family or caregiver, and/or care coordination for the diagnoses above. Electronically Signed by: Inocente Nathan MD T: 9:48 AM CC: Ford?Diana? PCP: Jewel Dolan Referring: Jewel Dolan This document was completed utilizing speech recognition software. Grammatical errors, random word insertions, pronoun errors, and incomplete sentences are an occasional consequence of this system due to software limitations, ambient noise, and hardware issues. Any formal questions or concerns about the content, text or information contained within the body of this dictation should be directly addressed to the provider for clarification.
[2024-09-01 15:17] LABS: Basophils % (Auto) 1 % (0-2.5); Eosinophils % (Auto) 1 % (0-10); Hematocrit 28.4 % (36.0-46.0); Hemoglobin 9.9 g/dL (12.0-16.0); Immature Granulocytes % (Auto) 2 % (0-0); Immature Granulocytes Auto 0.04 Thou/mm3 (0.00-0.00); Lymphocytes # (Auto) 0.8 Thou/mm3 (1.0-4.8); Lymphocytes % (Auto) 37 % (10-50); Mean Corpuscular HGB Conc 34.9 g/dl (31.0-37.0); Mean Corpuscular Hemoglobin 36.1 pg (25.0-35.0); Mean Corpuscular Volume 104 fL (80-100); Monocytes # (Auto) 0.1 Thou/mm3 (0.0-0.8); Monocytes % (Auto) 5 % (0-12); Neutrophils # (Auto) 1.1 Thou/mm3 (1.8-7.7); Neutrophils % (Auto) 54 % (37-80); Nucleated Red Blood Cell % 0 /100 WBC (0); Platelet Count 82 Thou/mm3 (140-440); RDW Standard Deviation 66.3 fL (36.4-46.3); Red Blood Count 2.74 Miln/mm3 (4.00-5.20)
[2024-09-01 15:49] LABS: Alanine Aminotransferase 8 U/L (10-49); Albumin/Globulin Ratio 1.7 (1.2-2.2); Alkaline Phosphatase 56 U/L (46-116); Anion Gap 7 (7-16); Aspartate Amino Transferase 17 U/L (0-34); BUN/Creatinine Ratio 14 Ratio (12-20); Bilirubin,Total 0.4 mg/dL (0.3-1.2); Blood Urea Nitrogen 13 mg/dL (9-23); Carbon Dioxide 26.8 mMol/L (20.0-31.0); Chloride 108 mMol/L (98-107); Creatinine (Component) 0.9 mg/dL (0.6-1.3); Globulin 2.3 gm/dL (2.3-3.5); Glucose 80 mg/dL (74-106); Osmolality,Calculated 282 (275-295); Potassium 4.1 mMol/L (3.4-5.1); Sodium 142 mMol/L (136-145); Total Protein 6.3 gm/dL (5.7-8.2); eGFR > 60 See Note
[2024-09-01 16:29] LABS: Carcinoembryonic Antigen 1.7 ng/mL (0.0-5.0)
== END 2024-09-01 23:59 | disposition home or self-care (01) ==
LOC: SCTC 14:23
PROVIDERS: PCP Family Medicine; Referring Provider Family Medicine; Visit Provider Internal Medicine Hematology & Oncology
DX: C50.812 Malignant neoplasm of overlapping sites of left female breast (principal); C79.51 Secondary malignant neoplasm of bone; Z17.0 Estrogen receptor positive status [ER+]; Z17.21 Progesterone receptor positive status; Z17.32 Human epidermal growth factor receptor 2 negative status; R19.5 Other fecal abnormalities; Z90.12 Acquired absence of left breast and nipple; C44.629 Squamous cell carcinoma of skin of left upper limb, including shoulder; L21.0 Seborrhea capitis; Z71.89 Other specified counseling; Z79.818 Long term (current) use of other agents affecting estrogen receptors and estrogen levels
CPT/HCPCS: 36591; 80053; 82378; 85025; 86300; 99212; A4216; J1642; G0463

== ENCOUNTER → 2024-09-04 | Outpatient (CLI) | payer MEDICARE, SELFPAY ==
[2024-09-04 10:36] LABS: Basophils # (Auto) 0.0 Thou/mm3 (0.0-0.2); Basophils % (Auto) 1 % (0-2.5); Eosinophils # (Auto) 0.0 Thou/mm3 (0.0-0.5); Eosinophils % (Auto) 1 % (0-10); Hematocrit 32.3 % (36.0-46.0); Hemoglobin 11.0 g/dL (12.0-16.0); Immature Granulocytes Auto 0.00 Thou/mm3 (0.00-0.00); Lymphocytes # (Auto) 0.6 Thou/mm3 (1.0-4.8); Lymphocytes % (Auto) 43 % (10-50); Mean Corpuscular HGB Conc 34.1 g/dl (31.0-37.0); Mean Corpuscular Hemoglobin 36.2 pg (25.0-35.0); Mean Corpuscular Volume 106 fL (80-100); Monocytes # (Auto) 0.1 Thou/mm3 (0.0-0.8); Monocytes % (Auto) 9 % (0-12); Neutrophils # (Auto) 0.6 Thou/mm3 (1.8-7.7); Neutrophils % (Auto) 46 % (37-80); Nucleated Red Blood Cell # 0.00 Thou/mm3 (0.00-0.00); Nucleated Red Blood Cell % 0 /100 WBC (0); RDW Standard Deviation 68.2 fL (36.4-46.3); Red Blood Count 3.04 Miln/mm3 (4.00-5.20)
[2024-09-04 10:41] LABS: Platelet Count 73 Thou/mm3 (140-440); White Blood Count 1.4 Thou/mm3 (3.6-11.0)
[2024-09-04 11:55] LABS: Slide Review Platelets confirmed
== END | disposition home or self-care (01) ==
LOC: SCTO 09:10
PROVIDERS: PCP Family Medicine; Referring Provider Internal Medicine Hematology & Oncology; Visit Provider Internal Medicine Hematology & Oncology
DX: C50.412 Malignant neoplasm of upper-outer quadrant of left female breast (principal)
CPT/HCPCS: 36415; 85025

== ENCOUNTER 2024-09-25 15:15 | Outpatient (RCR) | payer MEDICARE, SELFPAY ==
[2024-09-09 10:55] LABS: Basophils # (Auto) 0.0 Thou/mm3 (0.0-0.2); Basophils % (Auto) 1 % (0-2.5); Eosinophils # (Auto) 0.0 Thou/mm3 (0.0-0.5); Eosinophils % (Auto) 0 % (0-10); Hematocrit 33.5 % (36.0-46.0); Hemoglobin 11.9 g/dL (12.0-16.0); Immature Granulocytes Auto 0.01 Thou/mm3 (0.00-0.00); Lymphocytes # (Auto) 0.8 Thou/mm3 (1.0-4.8); Lymphocytes % (Auto) 35 % (10-50); Mean Corpuscular HGB Conc 35.5 g/dl (31.0-37.0); Mean Corpuscular Hemoglobin 36.7 pg (25.0-35.0); Mean Corpuscular Volume 103 fL (80-100); Monocytes # (Auto) 0.3 Thou/mm3 (0.0-0.8); Monocytes % (Auto) 15 % (0-12); Neutrophils # (Auto) 1.1 Thou/mm3 (1.8-7.7); Neutrophils % (Auto) 49 % (37-80); Nucleated Red Blood Cell # 0.00 Thou/mm3 (0.00-0.00); Nucleated Red Blood Cell % 0 /100 WBC (0); Platelet Count 94 Thou/mm3 (140-440); RDW Standard Deviation 70.0 fL (36.4-46.3); Red Blood Count 3.24 Miln/mm3 (4.00-5.20)
[2024-09-09 11:04] LABS: Alanine Aminotransferase 9 U/L (10-49); Albumin, Serum 4.5 gm/dL (3.4-4.8); Albumin/Globulin Ratio 1.8 (1.2-2.2); Alkaline Phosphatase 66 U/L (46-116); Anion Gap 11 (7-16); Aspartate Amino Transferase 21 U/L (0-34); BUN/Creatinine Ratio 14 Ratio (12-20); Bilirubin,Total 0.5 mg/dL (0.3-1.2); Blood Urea Nitrogen 14 mg/dL (9-23); Calcium 9.3 mg/dL (8.3-10.6); Calcium (Corrected) 9.3 mg/dL (8.5-10.1); Carbon Dioxide 28.4 mMol/L (20.0-31.0); Chloride 104 mMol/L (98-107); Creatinine (Component) 1.0 mg/dL (0.6-1.3); Globulin 2.5 gm/dL (2.3-3.5); Glucose 104 mg/dL (74-106); Osmolality,Calculated 285 (275-295); Potassium 4.0 mMol/L (3.4-5.1); Sodium 143 mMol/L (136-145); Total Protein 7.0 gm/dL (5.7-8.2); eGFR > 60 See Note
[2024-09-09 11:16] LABS: White Blood Count 2.3 Thou/mm3 (3.6-11.0)
--- NOTE | 2024-09-29 07:03 | CTCFLWUP_ITS ---
Patient: JEROME IBARRA : 1955 Page 9 of 13 FOLLOW UP NOTE DATE OF SERVICE: 09/25/2024 NAME: JEROME IBARRA ACCOUNT: [id number] : 1955 AGE: 69 INTERVAL HISTORY: Subjective: Chief Complaint Feeling better since going on 2 tablets with Kisqali History of Present Illness Guillermo Coleman, a patient with a history of cancer, presents for follow-up of her ongoing treatment with Kisqali. She reports experiencing increased hot flashes, which she attributes to her hormone-suppressing medication. The patient also notes feeling unwell for the first couple of days after starting her medication cycle, but then feeling better as time progresses. Review of Systems General: Positive for hot flashes. Skin: Positive for dandruff. Gastrointestinal: Positive for loose bowels. Objective: Physical Examination Skin: Significant dandruff observed on scalp, appearing stuck to the skin. Laboratory, Imaging, and Diagnostic Test Results - Date: Not specified - CBC: WBC 2.0 (low), Platelets 75 (low) - Echocardiogram: Normal heart function - PET scan (07/01/2024): 12.6 mm nodule (increased from 10.4 mm) Surgical History - Radiation therapy to the chest and left neck - Additional radiation therapy to the left chest wall in August 2023 - Radiation therapy (3000 cGy) in December 2023 Medications and Supplements - Ribociclib (Kisqali) 600 mg - Started recently - Causing low white blood cell count and neutrophils - Fulvestrant - Abemaciclib - Discontinued due to significant diarrhea - EstroGel - Used from February 2023 to November 2023 - Discontinued due to disease progression Family History - Father: Acute myeloid leukemia diagnosed at age 64, shortly after starting chemotherapy due to heart attack or blood clot Social History - Marital Status: for 34 years - Living Situation: Lives with spouse - Diet: Reports changes in taste perception of food - Physical Activity: Attends gym, used vibratory therapy machine - Stress: Experiencing emotional toll due to cancer diagnosis and treatment - Coping Mechanisms: Engages in daily meditation Review of Systems General: Positive for dizziness upon standing from low position. Negative for weight loss. HEENT: Positive for neck pain. Cardiovascular: Positive for ankle swelling after vibratory therapy. Gastrointestinal: Positive for altered taste sensation. Musculoskeletal: Positive for neck pain. ONCOLOGY HISTORY:?[facility] Oncology Hx? 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 S/p left modified radical mastectomy (09/19/2022) S/p 4 cycles of dose dense AC chemotherapy followed by 3 cycles of Taxol in the adjuvant setting. 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 The last dose of Taxol discontinued. Status post adjuvant anastrozole 02/21/2023?11/26/2023. Stopped due to progression Patient was not able to tolerate abemaciclib which caused significant diarrhea. Currently undergoing radiation therapy left chest as well as left neck. 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 02/01/2022: Bilateral screening mammograms? 02/01/2022: Bilateral breast ultrasound 07/20/2022: Ultrasound-guided biopsy of the left breast nodule. 08/15/2022: Ms. Ibarra had breast lumpectomy and sentinel lymph node biopsy 09/07/2022: Echocardiogram showed left ventricular ejection fraction 65%. 09/19/2022: Ms. Ibarra had left modified radical mastectomy 09/28/2022: PET/CT scan 11/16/2022: Patient had first cycle of dose dense AC chemotherapy. 11/20/2022: Patient was seen in the emergency room because of epigastric pain and had EKG done. Troponin levels were in the normal range twice. Echocardiogram showed an ejection fraction of 60-65% Dr. Cortes Ravi saw Ms. Ibarra on 11/25/2022. He cleared Ms. Ibrara to continue chemotherapy from cardiology point of view. 12/28/2022: Ms. Ibarra had a full cycle of dose dense AC. 01/18/2023 - 02/15/2023: Ms. Ibarra had 3 cycles of dose dense Taxol. Unfortunately she was not able to get the fourth cycle of Taxol due to significant peripheral neuropathy. 02/21/2023: Ms. Ibarra is started on adjuvant anastrozole as well as abemaciclib. After taking abemaciclib 150 mg p.o. twice daily for 6 days Ms. Ibarra decided to discontinue it due to significant diarrhea. 03/14/2023: Ms. Ibarra received first dose of adjuvant zoledronic acid. 03/28/2023: Ms. Ibarra is started on adjuvant radiation therapy to the left chest wall as well as left side of neck. 09/20/2023: PET/CT scan 10/01/2023: MRI of the thoracic spine with and without contrast 10/29/2023: MRI of the cervical spine with and without contrast 11/21/2023: Ms. Ibarra is started on radiation therapy to the cervical spine area. 11/23/2023: Bone scan? 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 FAMILY HISTORY: Father:?LUNG Cancer History:?2 AUNTS LUNG MATERNAL AUNT BREAST ?Clone Family Hx? SOCIAL HISTORY: Occupational?History:?RETIRED Education?Level:?6-Attended?Vocational?School,?did?not?graduate Marital?Status:? Tobacco?Pack?per?Day:?0 ETOH?Use:?SOCIAL Drug?Note:?DENIES Social?History?Note:?LIVES?WITH? ?Clone Social Hx? 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 MEDICATIONS: 1. amlodipine - 25 mg Daily 2. baclofen - 10 mg Daily 3. Colace - 100 mg 1 Capsule Daily 4. Compazine - 10 mg 1 tab As needed 5. FLUoxetine - 10 mg 1 tab Daily 6. gabapentin - 300 mg 3 Capsule 3 tabs three times Daily 7. HYDROcodone-acetaminophen - 7.5-325 mg 1 tab q6 8. Kisqali Femara Co-Pack - 400 mg/day(200 mg x 2)-2.5 mg 2 tab Daily 9. Lomotil - 2.5-0.025 mg 1 tab Every 6 Hours 10. meloxicam - 7.5 mg 1 tab Daily 11. omeprazole - 20 mg 1 Daily 12. simvastatin - 20 mg Daily 13. traZODone - 50 mg 1 tab Every day before sleep 14. Vitamin B1 - 1 tab Daily 15. Vitamin D3 - 400 unit 1 Capsule Daily 16. vitamins A, C, and E/dietary [place] [place] - As directed 17. ZINC ACETATE - As directed 18. Zofran - 4 mg tab As needed?Palabra Meds? Medications Last Reconciled by Karo Blackwood MA on 09/25/2024 ALLERGIES: sulfasalazine REVIEW OF SYSTEMS: A complete 14-point review of systems was performed and is negative except as noted in interval history. PHYSICAL EXAMINATION:?[facility] PE? VITAL SIGNS: Temperature?98, B/P?94/60, Oxygen?Saturation?99% PAIN: 0 - No pain EYE: Conjunctivae is moist MOUTH: Oral cavity is dry. CHEST: Clear to auscultation. No wheezes or rales audible. CARDIAC: Rhythm regular, no murmurs or gallops present. ABDOMEN: Soft. No hepatosplenomegaly. EXTREMITIES: No pedal edema or cyanosis. LABORATORY DATA: I have personally reviewed and interpreted each of the patient?s relevant lab tests, abnormal findings are below: Date 09/01/24 09/04/24 09/09/24 ??WHITE?BLOOD?COUNT?(Thou/mm3) 2.0?L 1.4?L 2.3?L ??RED?BLOOD?COUNT?(Miln/mm3) 2.74?L 3.04?L 3.24?L ??HEMOGLOBIN?(gm/dl) 9.9?L 11.0?L 11.9?L ??HEMATOCRIT?(%) 28.4?L 32.3?L 33.5?L ??PLATELET?COUNT?(Thou/mm3) 82?L 73?L 94?L ??NEUTROPHILS?%,?AUTO?(%) 54 46 49 ??LYMPH?%,?AUTO?(%) 37 43 35 ??NEUTROPHILS,?AUTO?(Thou/mm3) 1.1?L 0.6?L 1.1?L ??GLUCOSE,RANDOM?(mg/dL) ? ? 104 ??BLOOD?UREA?NITROGEN?(mg/dL) ? ? 14 ??CREATININE?(mg/dL) ? ? 1.00 ??SODIUM?(mmol/L) ? ? 143 ??POTASSIUM?(mmol/L) ? ? 4.0 ??CHLORIDE?(mmol/L) ? ? 104 ??CrCl?(CandG)?(ml/min) ? ? 48.43 ??AST/SGOT?(Unit/L) ? ? 21 ??ALT/SGPT?(Unit/L) ? ? 9?L ??ALKALINE?PHOSPHATASE?(Unit/L) ? ? 66 ??BILIRUBIN,?TOTAL?(mg/dL) ? ? 0.5 ??PROTEIN?TOTAL?(gm/dl) ? ? 7.0 ??ALBUMIN,?SERUM?(gm/dl) ? ? 4.5 ??GLOBULIN?(gm/dl) ? ? 2.5 ??ALBUMIN/GLOBULIN?RATIO ? ? 1.8 ??CALCIUM,?SERUM?(mg/dL) ? ? 9.3 ??CALCIUM?SERUM?(CORRECTED)?(mg/dL) ? ? 9.3 ASSESSMENT/PLAN:?Amadeo Nathan Assessment/Plan? #1 stage IV metastatic breast cancer with bone mets, ER positive VA negative HER2/colette negative AKT1 mutation positive Bone scan showed osseous metastatic disease as documented above. MRI of the cervix spine with and without contrast showed osseous metastatic disease involving C5, C6, C7 vertebral bodies. Completed radiotherapy to the cervical spine Patient started on Faslodex and ribociclib Patient previously was on adjuvant anastrozole started on February 21, 2023. Patient adjuvant abemaciclib 150 mg p.o. twice daily for about 6 days. She was unable to continue due to significant diarrhea. Patient also received first dose of adjuvant zoledronic acid on 03/14/2023. S/p 4 cycles of dose dense AC and 3 cycles of dose dense Taxol. Ms. Ibarra is scheduled to receive third cycle of dose dense Taxol on 02/15/2023. S/p left modified radical mastectomy (09/19/2022) Will hold on Capivasertib which can be used in third line setting Plan is to continue ribociclib and fulvestrant until further progression of disease PET CT scan ordered to see response to treatment CBC CMP CA 15-3 EKG and RTC in 1 month #2 bone mets Zol edronic acid IV every 3 months for bone mets Continue Citracal 1 tablet p.o. twice daily. Bam Coleman, a 69-year-old woman with stage 4 breast cancer (ERPR positive), initially diagnosed as stage 3 in 2022, presenting for follow-up on current treatment with ribociclib and fulvestrant. Patient is currently undergoing treatment with Kisqali for metastatic cancer. A PET scan on July 01 showed an increase in a nodule size from 10.4 mm to 12.6 mm, which prompted the change in treatment. The patient started Kisqali 600 mg on May 05. Recent mutation burden tests came back negative. An echocardiogram showed normal heart function. Current blood work shows low white cell count (2) and low platelets (75), likely due to Kisqali. The patient reports experiencing hot flashes, possibly related to hormone suppression therapy. She also mentions feeling unwell for the first couple of days after starting Kisqali, with loose bowels and general malaise, but notes that these symptoms are less severe than with previous treatment (Verzenio). 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 Surgery is scheduled for Sunday to address this issue. Plan: - Proceed with scheduled surgery on Sunday for squamous cell carcinoma on forearm Scalp Condition (Possible Seborrheic Dermatitis) Assessment: Patient presents with significant dandruff and scaling on the scalp, possibly indicative of seborrheic dermatitis. Plan: - Recommend use of tar gel shampoo - Suggest application of heated coconut oil with brad to scalp before shampooing - Patient to consult with r d manager at upcoming appointment next Sunday for further evaluation and possible prescription treatment Medical History - Stage 4 breast cancer, ERPR positive - Stage 3 breast cancer, initially diagnosed in 2022 - Dizziness when standing up from a low position - Altered taste perception - Neck pain - Cataracts - Ankle swelling after vibratory therapy Stage 4 Breast Cancer (ERPR positive) Assessment: Patient was diagnosed with stage 3 breast cancer in 2022, which has since progressed to stage 4. She completed 4 cycles of EAC and progressed post- adjuvant EstroGel from February 2023 to November 2023. Radiation therapy to the chest and left neck was completed, with additional radiation to the left chest wall in August 2023. MRI cervical spine and bone scan were concerning for osseous disease, leading to 3000 cGy radiation treatment in December 2023. Currently on ribociclib and fulvestrant at 600 mg since April. Patient reports persistent neck pain, which could be due to metastatic disease or arthritis. A PET scan is scheduled for tomorrow to assess treatment response. Overall, the patient reports feeling okay with some dizziness upon standing and changes in taste perception. Plan: - Continue ribociclib and fulvestrant treatment - Hold ribociclib for one week due to low white blood cell count (1.5) and neutrophils (0.6) - Obtain CBC on or Sunday - Ensure white cell count is at least 1 before restarting treatment - Restart ribociclib on Sunday if blood counts improve - Consider dose reduction to 400 mg if low counts persist - Review PET scan results when available (expected in about a week) - Monitor for treatment side effects and disease progression - Consider Elena testing for ultrasensitive cancer recurrence monitoring - Follow up after PET scan results, potentially via telephone appointment or in 4 weeks Cataracts Assessment: Patient inquired about addressing cataracts. Given the current cancer treatment and potential for low blood cell counts, timing of the procedure needs to be carefully considered. Plan: - Schedule cataract surgery, coinciding with the start of the next ribociclib cycle and do not take ribociclib for that month and cont fulvestrant - Take a one-week break from ribociclib before cataract surgery - Ensure blood counts are adequate before proceeding with surgery Nutritional Status Assessment: Patient reports stable weight but mentions that food doesn't taste the same anymore, which could potentially impact nutritional intake. Plan: - Encourage a diet rich in vegetables, chicken, and fish - Avoid pork and other red meats - Monitor weight and nutritional status at follow-up visits Psychosocial Concerns Assessment: Patient's expresses emotional distress due to the impact of cancer on their relationship and overall quality of life. The couple has been together for 34 years, and the cancer diagnosis is taking a toll on their relationship. Plan: - Encourage daily meditation for positive energy - Provide emotional support and reassurance about the potential for long-term survival with current treatments - Consider referral for psychosocial support or counseling if needed #3 pain management Patient to follow with Dr. Ortiz for pain management Ordered gabapentin 300 mg 3 times daily for better neuropathic pain control ORDERS: Order # Description [id number] CBC + Comprehensive Metabolic Panel + [facility] + CA 27.29 [id number] Lab Appointment [id number] CBC + Comprehensive Metabolic Panel + [facility] + CA 27.29 [id number] Lab Appointment [id number] Infusion 1 Hour [id number] CBC + Comprehensive Metabolic Panel + [facility] + CA 27.29 [id number] Lab Appointment [id number] CBC + Comprehensive Metabolic Panel + [facility] + CA 27.29 [id number] Lab Appointment [id number] Infusion 1 Hour [id number] Infusion 1 Hour RETURN TO CLINIC: I reviewed the diagnosis, prognosis, and recommended treatment/procedure options with the patient (and/or their legal traffic representative), including the potential benefits, risks, side effects and alternative therapies. We also discussed the option of no treatment and the possibility of clinical trial participation, if applicable. All questions were addressed, and they demonstrated understanding. They provided informed consent to proceed with the proposed plan of care. BILLING AND COMPLIANCE: I reviewed external records from providers outside my specialty as summarized above. I spent a total of 50 minutes on this patient?s care on the day of their visit excluding time spent related to any billed procedures. This time includes time spent with the patient as well as time spent documenting in the medical record, reviewing patients records and tests, obtaining history, placing orders, communicating with other healthcare professionals, counseling the patient, family or caregiver, and/or care coordination for the diagnoses above. Electronically Signed by: Inocente Nathan MD T: 7:01 AM CC: Baljeet? PCP: Jewel Dolan Referring: Jewel Dolan This document was completed utilizing speech recognition software. Grammatical errors, random word insertions, pronoun errors, and incomplete sentences are an occasional consequence of this system due to software limitations, ambient noise, and hardware issues. Any formal questions or concerns about the content, text or information contained within the body of this dictation should be directly addressed to the provider for clarification.
== END 2024-10-02 23:59 | disposition home or self-care (01) ==
LOC: SCTC 15:15
PROVIDERS: PCP Family Medicine; Referring Provider Family Medicine; Visit Provider Internal Medicine Hematology & Oncology
DX: Z51.11 Encounter for antineoplastic chemotherapy (principal); C50.812 Malignant neoplasm of overlapping sites of left female breast; C79.51 Secondary malignant neoplasm of bone; Z17.0 Estrogen receptor positive status [ER+]; Z17.21 Progesterone receptor positive status; Z17.32 Human epidermal growth factor receptor 2 negative status; Z90.12 Acquired absence of left breast and nipple; C76.40 Malignant neoplasm of unspecified upper limb; Z79.818 Long term (current) use of other agents affecting estrogen receptors and estrogen levels; H26.9 Unspecified cataract; L21.0 Seborrhea capitis
CPT/HCPCS: 36591; 80053; 85025; 96365; 96402; 99212; A4216; J1642; J3489; J7030; J9395; G0463

== ENCOUNTER → 2024-10-03 | Outpatient (CLI) | payer MEDICARE, SELFPAY ==
--- NOTE | 2024-10-03 13:15 | XR_ITS ---
EXAMINATION: PET/CT FUSION SKULL TO THIGH EXAM DATE AND TIME: October 03, 2024 1358 hours Comparison July 01, 2024, February 28, 2024 INDICATIONS: Diagnosis malignant neoplasm breast, post treatment restaging CTDI:vol (mGy) 4.06 DLP: (mGycm) 370.99 PROCEDURE: 15.9 mCi FDG was administered intravenously To allow for distribution and uptake of radiotracer, the patient was allowed to rest quietly in a shielded room. Imaging was performed on an integrated 16-slice PET/CT scanner, with scanning from the skull base to the mid thigh. Serum blood glucose at the time of the injection was measured 90 mg/dL. CT scanning was performed without oral or intravenous contrast material. FINDINGS: Head and Neck: There is no silvana hypermetabolism in the neck. The visualized portions of the brain are normal in appearance on CT. Chest: Stable non hypermetabolic 18 mm pulmonary nodule left upper lobe compared with July 01, 2024 Stable 12.6 mm pulmonary nodule right lower lobe compared with July 01, 2024 No new pulmonary nodules Abdomen and Pelvis: There is no silvana hypermetabolism in retroperitoneal or pelvic chains. The spleen is normal in size and FDG avidity. Musculoskeletal: Marrow uptake is within normal range. IMPRESSION: Stable 18 mm pulmonary nodule left upper lobe compared with July 01, 2024. Stable 12.6 mm pulmonary nodule right lower lobe compared with July 01, 2024. No new pulmonary nodules No interval metastatic disease
== END | disposition home or self-care (01) ==
LOC: CDIM 13:00
PROVIDERS: PCP Family Medicine; Referring Provider Internal Medicine Hematology & Oncology; Visit Provider Internal Medicine Hematology & Oncology
DX: R91.8 Other nonspecific abnormal finding of lung field (principal); C50.412 Malignant neoplasm of upper-outer quadrant of left female breast; C79.51 Secondary malignant neoplasm of bone
CPT/HCPCS: 78815; A9552

== ENCOUNTER 2024-10-13 09:55 | Outpatient (RCR) | payer MEDICARE, SELFPAY ==
--- NOTE | 2024-10-08 14:54 | CTCFLWUP_ITS ---
[facility] [address] [place], [place] [address] FOLLOW-UP NOTE Date: 10/08/2024 MR#: [id number] Name: JEROME IBARRA : 1955 Dx: C50.412 Malignant neoplasm of upper-outer quadrant of left female breast Identification. Patient with history of stage IIIc status post left modified radical mastectomy 09/19/2002. ER positive HER2 negative MA negative Had 4 cycles of dose dense AC chemo followed by 3 cycles of Taxol in adjuvant setting. Completed chest wall on regional node radiation 6 3 understanding completed 08/29/2023. Was experiencing neck pain and MRI of the C-spine 10/29/2023 showed osseous mets C5-6-7 area. Bone scan also showed uptake in the cervical lumbar region and right anterior lower rib. Interventional radiology declined biopsy and ration therapy delivered 3000 cGy via VMAT completed 12/04/2023. Patient states that pain was better but still needs occasional hydrocodone 7.5 as needed Most recent PET scan 10/03/2024 shows stable 18 mm pulmonary nodule left upper lobe stable 12.6 mm pulm nodule right lower lobe compared to July 01, 2024. No interval met disease. As I see patient today patient appears comfortable some tenderness in the cervical spine. Assessment #1 history of stage IIIc left breast CA with recurrent met C-spine area #2. Prior radiation therapy to right chest wall C-spine with improvement of symptoms. #3. currently on Kisquli under Dr. Nathan's direction #4. Clinically doing well with recent PET scan showing no interval met disease. #6. Will see her again in about 6 months time, renew pain meds as needed. Electronically signed by: Ford Ortiz M.D. 10/08/2024 2:52 PM
[2024-10-09 09:06] LABS: Basophils # (Auto) 0.0 Thou/mm3 (0.0-0.2); Eosinophils # (Auto) 0.1 Thou/mm3 (0.0-0.5); Eosinophils % (Auto) 3 % (0-10); Nucleated Red Blood Cell # 0.00 Thou/mm3 (0.00-0.00); Nucleated Red Blood Cell % 0 /100 WBC (0)
[2024-10-09 09:07] LABS: Basophils % (Auto) 1 % (0-2.5); Hematocrit 33.2 % (36.0-46.0); Hemoglobin 11.2 g/dL (12.0-16.0); Immature Granulocytes Auto 0.02 Thou/mm3 (0.00-0.00); Lymphocytes # (Auto) 0.6 Thou/mm3 (1.0-4.8); Lymphocytes % (Auto) 31 % (10-50); Mean Corpuscular HGB Conc 33.7 g/dl (31.0-37.0); Mean Corpuscular Hemoglobin 35.3 pg (25.0-35.0); Mean Corpuscular Volume 105 fL (80-100); Monocytes # (Auto) 0.1 Thou/mm3 (0.0-0.8); Monocytes % (Auto) 8 % (0-12); Neutrophils # (Auto) 1.1 Thou/mm3 (1.8-7.7); Neutrophils % (Auto) 56 % (37-80); Platelet Count 114 Thou/mm3 (140-440); RDW Standard Deviation 67.7 fL (36.4-46.3); Red Blood Count 3.17 Miln/mm3 (4.00-5.20)
[2024-10-09 09:31] LABS: Carcinoembryonic Antigen 1.5 ng/mL (0.0-5.0)
[2024-10-09 09:39] LABS: Alanine Aminotransferase < 7 U/L (10-49); Albumin, Serum 4.1 gm/dL (3.4-4.8); Albumin/Globulin Ratio 2.0 (1.2-2.2); Alkaline Phosphatase 57 U/L (46-116); Anion Gap 12 (7-16); Aspartate Amino Transferase 17 U/L (0-34); BUN/Creatinine Ratio 14 Ratio (12-20); Bilirubin,Total 0.3 mg/dL (0.3-1.2); Blood Urea Nitrogen 14 mg/dL (9-23); Calcium 9.1 mg/dL (8.3-10.6); Calcium (Corrected) 9.1 mg/dL (8.5-10.1); Carbon Dioxide 26.1 mMol/L (20.0-31.0); Chloride 105 mMol/L (98-107); Creatinine (Component) 1.0 mg/dL (0.6-1.3); Globulin 2.1 gm/dL (2.3-3.5); Glucose 104 mg/dL (74-106); Osmolality,Calculated 285 (275-295); Potassium 3.7 mMol/L (3.4-5.1); Sodium 143 mMol/L (136-145); Total Protein 6.2 gm/dL (5.7-8.2); eGFR > 60 See Note
[2024-10-09 09:43] LABS: White Blood Count 1.9 Thou/mm3 (3.6-11.0)
[2024-10-14 07:41] LABS: CA 27.29* 51 U/mL (LESS THAN 38)
== END 2024-11-02 23:59 | disposition home or self-care (01) ==
LOC: SCTC 09:55
PROVIDERS: Internal Medicine Hematology & Oncology; PCP Family Medicine; Referring Provider Family Medicine; Visit Provider Radiology Therapeutic Radiology
DX: Z51.11 Encounter for antineoplastic chemotherapy (principal); C50.412 Malignant neoplasm of upper-outer quadrant of left female breast; Z17.0 Estrogen receptor positive status [ER+]; Z17.22 Progesterone receptor negative status; Z17.32 Human epidermal growth factor receptor 2 negative status; Z90.12 Acquired absence of left breast and nipple; R91.8 Other nonspecific abnormal finding of lung field; Z92.3 Personal history of irradiation; Z85.830 Personal history of malignant neoplasm of bone
CPT/HCPCS: 36591; 80053; 82378; 85025; 86300; 96402; 99213; A4216; J1642; J9395; G0463

== ENCOUNTER → 2024-10-24 | Outpatient (CLI) | payer MEDICARE, SELFPAY ==
--- NOTE | 2024-10-24 10:30 | ECHO_ITS ---
Transthoracic Echo Report Ht (in): 61 Wt (lb): 147 Exam Location: Echo Lab Status: Preadmit Law Enforcement Officer: Nery Leyva Indications: Procedure Performed: BP: 142 / 75 HR: 71 MEASUREMENTS (Male / Female) Normal Values 2D ECHO LV Diastolic Diameter PLAX 4.2 cm 4.2 - 5.9 / 3.9 - 5.3 cm LV Systolic Diameter PLAX 2.4 cm IVS Diastolic Thickness 0.9 cm 0.6 - 1.0 / 0.6 - 0.9 cm LVPW Diastolic Thickness 0.8 cm 0.6 - 1.0 / 0.6 - 0.9 cm LV Relative Wall Thickness 0.4 LVOT Diameter 1.8 cm LA Volume Index 23.8 cm?/m? 16 - 28 cm?/m? Ascending Aorta Diameter 2.8 cm M-MODE AV Cusp Separation MM 1.2 cm DOPPLER AV Peak Velocity 123.0 cm/s AV Peak Gradient 6.1 mmHg AV Mean Gradient 3.0 mmHg AV Velocity Time Integral 28.1 cm LVOT Peak Velocity 89.4 cm/s LVOT Peak Gradient 3.2 mmHg LVOT Velocity Time Integral 22.3 cm LVOT Cardiac Index 2352.9 cm?/min?m? AV Area Cont Eq vti 2.0 cm? AV Area Cont Eq pk 1.8 cm? MV Area PHT 3.9 cm? Mitral E Point Velocity 59.6 cm/s Mitral A Point Velocity 86.1 cm/s Mitral E to A Ratio 0.7 LV E' Lateral Velocity 5.9 cm/s Mitral E to LV E' Lateral Ratio 10.2 LV E' Septal Velocity 5.3 cm/s Mitral E to LV E' Septal Ratio 11.2 TR Peak Velocity 149.3 cm/s TR Peak Gradient 8.9 mmHg PV Peak Velocity 112.0 cm/s PV Peak Gradient 5.0 mmHg FINDINGS Left Ventricle Normal left ventricular size, wall thickness, systolic function with no obvious regional wall motion abnormalities. There is grade I diastolic dysfunction of the left ventricle (impaired relaxation pattern). The ejection fraction is visually estimated at 55-60%. Right Ventricle The right ventricle is normal in size and systolic function. The estimated right ventricular systolic pressure, 16 mmHg. Left Atrium The left atrium is normal by two-dimensional, color flow and Doppler imaging with no structural abnormalities, no thrombus formation present. Right Atrium The right atrium is normal by two-dimensional imaging, color flow and Doppler imaging with no structural abnormalities, no thrombus formation present. Atrial Septum The interatrial septum appears normal with no evidence of a shunt. Aorta The aorta is normal by two-dimensional, color flow and Doppler interrogation. Mitral Valve The mitral valve is normal by two-dimensional, color flow and Doppler interrogation.Trace to mild mitral regurgitation. Aortic Valve The aortic valve is trileaflet and normal by two-dimensional, color flow and Doppler interrogation. There is no significant aortic valve regurgitation. Tricuspid Valve The tricuspid valve is normal by two-dimensional, color flow and Doppler interrogation. There is trace tricuspid valve regurgitation. Pulmonic Valve The pulmonic valve is not well visualized. There is no significant pulmonic valve regurgitation. Vessels The pulmonary artery appears normal. The inferior vena cava pulmonary and hepatic veins appear normal. Pericardium The pericardium is normal by two-dimensional imaging. There is no significant pericardial effusion. CONCLUSIONS Indication: Cancer center Normal left ventricular size and function. Grade I diastolic dysfunction. Approximate ejection fraction is 55-60%. RV appears normal with RVSP 16mmHg Trace mitral and trace tricuspid regurgitation Kemi Lindsay (Electronically Signed) Final Date: 24 October 2024 17:35
== END | disposition home or self-care (01) ==
LOC: SDIM 10:07
PROVIDERS: PCP Family Medicine; Referring Provider Internal Medicine Hematology & Oncology; Visit Provider Internal Medicine Hematology & Oncology
DX: I50.30 Unspecified diastolic (congestive) heart failure (principal); I08.1 Rheumatic disorders of both mitral and tricuspid valves; C50.412 Malignant neoplasm of upper-outer quadrant of left female breast
CPT/HCPCS: 93306

== ENCOUNTER 2024-11-12 09:52 | Outpatient (RCR) | payer MEDICARE, SELFPAY ==
[2024-11-11 16:01] LABS: Basophils # (Auto) 0.0 Thou/mm3 (0.0-0.2); Basophils % (Auto) 2 % (0-2.5); Eosinophils # (Auto) 0.0 Thou/mm3 (0.0-0.5); Eosinophils % (Auto) 2 % (0-10); Hematocrit 35.2 % (36.0-46.0); Hemoglobin 11.7 g/dL (12.0-16.0); Immature Granulocytes Auto 0.01 Thou/mm3 (0.00-0.00); Lymphocytes # (Auto) 0.8 Thou/mm3 (1.0-4.8); Lymphocytes % (Auto) 32 % (10-50); Mean Corpuscular HGB Conc 33.2 g/dl (31.0-37.0); Mean Corpuscular Hemoglobin 35.5 pg (25.0-35.0); Mean Corpuscular Volume 107 fL (80-100); Monocytes # (Auto) 0.3 Thou/mm3 (0.0-0.8); Monocytes % (Auto) 12 % (0-12); Neutrophils # (Auto) 1.2 Thou/mm3 (1.8-7.7); Neutrophils % (Auto) 53 % (37-80); Nucleated Red Blood Cell # 0.00 Thou/mm3 (0.00-0.00); Nucleated Red Blood Cell % 0 /100 WBC (0); Platelet Count 162 Thou/mm3 (140-440); RDW Standard Deviation 66.3 fL (36.4-46.3); Red Blood Count 3.30 Miln/mm3 (4.00-5.20); White Blood Count 2.4 Thou/mm3 (3.6-11.0)
[2024-11-11 16:22] LABS: Alanine Aminotransferase 7 U/L (10-49); Albumin, Serum 4.0 gm/dL (3.4-4.8); Albumin/Globulin Ratio 1.7 (1.2-2.2); Alkaline Phosphatase 56 U/L (46-116); Anion Gap 14 (7-16); Aspartate Amino Transferase 20 U/L (0-34); BUN/Creatinine Ratio 11 Ratio (12-20); Bilirubin,Total 0.3 mg/dL (0.3-1.2); Blood Urea Nitrogen 11 mg/dL (9-23); Calcium 9.4 mg/dL (8.3-10.6); Calcium (Corrected) 9.4 mg/dL (8.5-10.1); Carbon Dioxide 26.1 mMol/L (20.0-31.0); Chloride 103 mMol/L (98-107); Creatinine (Component) 1.0 mg/dL (0.6-1.3); Globulin 2.3 gm/dL (2.3-3.5); Glucose 101 mg/dL (74-106); Osmolality,Calculated 284 (275-295); Potassium 4.2 mMol/L (3.4-5.1); Sodium 143 mMol/L (136-145); Total Protein 6.3 gm/dL (5.7-8.2); eGFR > 60 See Note
[2024-11-11 16:23] LABS: Carcinoembryonic Antigen 0.9 ng/mL (0.0-5.0)
[2024-11-18 06:36] LABS: CA 27.29* 47 U/mL (LESS THAN 38)
== END 2024-12-02 23:59 | disposition home or self-care (01) ==
LOC: SCTC 09:52
PROVIDERS: PCP Family Medicine; Referring Provider Family Medicine; Visit Provider Internal Medicine Hematology & Oncology
DX: Z51.11 Encounter for antineoplastic chemotherapy (principal); C50.412 Malignant neoplasm of upper-outer quadrant of left female breast; C79.51 Secondary malignant neoplasm of bone; Z17.0 Estrogen receptor positive status [ER+]; Z17.22 Progesterone receptor negative status; Z17.32 Human epidermal growth factor receptor 2 negative status; Z92.3 Personal history of irradiation
CPT/HCPCS: 36591; 80053; 82378; 85025; 86300; 96402; A4216; J1642; J9395

== ENCOUNTER 2024-12-29 14:50 | Outpatient (RCR) | payer MEDICARE, SELFPAY ==
[2024-12-08 12:37] LABS: Basophils # (Auto) 0.0 Thou/mm3 (0.0-0.2); Basophils % (Auto) 1 % (0-2.5); Eosinophils # (Auto) 0.0 Thou/mm3 (0.0-0.5); Eosinophils % (Auto) 1 % (0-10); Hematocrit 36.2 % (36.0-46.0); Hemoglobin 12.4 g/dL (12.0-16.0); Immature Granulocytes Auto 0.01 Thou/mm3 (0.00-0.00); Lymphocytes # (Auto) 0.9 Thou/mm3 (1.0-4.8); Lymphocytes % (Auto) 39 % (10-50); Mean Corpuscular HGB Conc 34.3 g/dl (31.0-37.0); Mean Corpuscular Hemoglobin 35.9 pg (25.0-35.0); Mean Corpuscular Volume 105 fL (80-100); Monocytes # (Auto) 0.3 Thou/mm3 (0.0-0.8); Monocytes % (Auto) 11 % (0-12); Neutrophils # (Auto) 1.2 Thou/mm3 (1.8-7.7); Neutrophils % (Auto) 48 % (37-80); Nucleated Red Blood Cell # 0.00 Thou/mm3 (0.00-0.00); Nucleated Red Blood Cell % 0 /100 WBC (0); Platelet Count 145 Thou/mm3 (140-440); RDW Standard Deviation 58.5 fL (36.4-46.3); Red Blood Count 3.45 Miln/mm3 (4.00-5.20); White Blood Count 2.4 Thou/mm3 (3.6-11.0)
[2024-12-08 12:51] LABS: Carcinoembryonic Antigen 1.2 ng/mL (0.0-5.0)
[2024-12-08 12:52] LABS: Alanine Aminotransferase 10 U/L (10-49); Albumin, Serum 4.6 gm/dL (3.4-4.8); Albumin/Globulin Ratio 1.8 (1.2-2.2); Alkaline Phosphatase 54 U/L (46-116); Anion Gap 13 (7-16); Aspartate Amino Transferase 24 U/L (0-34); BUN/Creatinine Ratio 11 Ratio (12-20); Bilirubin,Total 0.3 mg/dL (0.3-1.2); Blood Urea Nitrogen 11 mg/dL (9-23); Calcium 10.1 mg/dL (8.3-10.6); Calcium (Corrected) 10.1 mg/dL (8.5-10.1); Carbon Dioxide 25.5 mMol/L (20.0-31.0); Chloride 105 mMol/L (98-107); Creatinine (Component) 1.0 mg/dL (0.6-1.3); Globulin 2.5 gm/dL (2.3-3.5); Glucose 94 mg/dL (74-106); Osmolality,Calculated 284 (275-295); Potassium 3.9 mMol/L (3.4-5.1); Sodium 143 mMol/L (136-145); Total Protein 7.1 gm/dL (5.7-8.2); eGFR > 60 See Note
[2024-12-15 06:26] LABS: CA 27.29* 51 U/mL (LESS THAN 38)
--- NOTE | 2025-01-05 13:06 | CTCFLWUP_ITS ---
Patient: JEROME IBARRA : 1955 Page 9 of 12 FOLLOW UP NOTE DATE OF SERVICE: 12/29/2024 NAME: JEROME IBARRA ACCOUNT: [id number] : 1955 AGE: 69 INTERVAL HISTORY: Patient is doing well on faslodex and kisqali and tolerating well. Review of Systems General: Positive for hot flashes. Skin: Positive for dandruff. Gastrointestinal: Positive for loose bowels. Objective: Physical Examination Skin: Significant dandruff observed on scalp, appearing stuck to the skin. Laboratory, Imaging, and Diagnostic Test Results - Date: Not specified - CBC: WBC 2.0 (low), Platelets 75 (low) - Echocardiogram: Normal heart function - PET scan (07/01/2024): 12.6 mm nodule (increased from 10.4 mm) Surgical History - Radiation therapy to the chest and left neck - Additional radiation therapy to the left chest wall in August 2023 - Radiation therapy (3000 cGy) in December 2023 Medications and Supplements - Ribociclib (Kisqali) 600 mg - Started recently - Causing low white blood cell count and neutrophils - Fulvestrant - Abemaciclib - Discontinued due to significant diarrhea - EstroGel - Used from February 2023 to November 2023 - Discontinued due to disease progression Family History - Father: Acute myeloid leukemia diagnosed at age 64, shortly after starting chemotherapy due to heart attack or blood clot Social History - Marital Status: for 34 years - Living Situation: Lives with spouse - Diet: Reports changes in taste perception of food - Physical Activity: Attends gym, used vibratory therapy machine - Stress: Experiencing emotional toll due to cancer diagnosis and treatment - Coping Mechanisms: Engages in daily meditation Review of Systems General: Positive for dizziness upon standing from low position. Negative for weight loss. HEENT: Positive for neck pain. Cardiovascular: Positive for ankle swelling after vibratory therapy. Gastrointestinal: Positive for altered taste sensation. Musculoskeletal: Positive for neck pain. ONCOLOGY HISTORY:?[facility] Oncology Hx? 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 S/p left modified radical mastectomy (09/19/2022) S/p 4 cycles of dose dense AC chemotherapy followed by 3 cycles of Taxol in the adjuvant setting. 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 The last dose of Taxol discontinued. Status post adjuvant anastrozole 02/21/2023?11/26/2023. Stopped due to progression Patient was not able to tolerate abemaciclib which caused significant diarrhea. Was experiencing neck pain and MRI of the C-spine 10/29/2023 showed osseous mets C5- 6-7 area. Bone scan also showed uptake in the cervical lumbar region and right anterior lower rib. Interventional radiology declined biopsy and ration therapy delivered 3000 cGy via VMAT completed 12/04/2023. Patient states that pain was better but still needs occasional hydrocodone 7.5 as needed Most recent PET scan 10/03/2024 shows stable 18 mm pulmonary nodule left upper lobe stable 6 mm pulm nodule right lower lobe compared to July 01, 2024. No interval met disease. 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 02/01/2022: Bilateral screening mammograms? 02/01/2022: Bilateral breast ultrasound 07/20/2022: Ultrasound-guided biopsy of the left breast nodule. 08/15/2022: Ms. Ibarra had breast lumpectomy and sentinel lymph node biopsy 09/07/2022: Echocardiogram showed left ventricular ejection fraction 65%. 09/19/2022: Ms. Ibarra had left modified radical mastectomy 09/28/2022: PET/CT scan 11/16/2022: Patient had first cycle of dose dense AC chemotherapy. 11/20/2022: Patient was seen in the emergency room because of epigastric pain and had EKG done. Troponin levels were in the normal range twice. Echocardiogram showed an ejection fraction of 60-65% Dr. Cortes Ravi saw Ms. Ibarra on 11/25/2022. He cleared Ms. Ibarra to continue chemotherapy from cardiology point of view. 12/28/2022: Ms. Ibarra had a full cycle of dose dense AC. 01/18/2023 - 02/15/2023: Ms. Ibarra had 3 cycles of dose dense Taxol. Unfortunately she was not able to get the fourth cycle of Taxol due to significant peripheral neuropathy. 02/21/2023: Ms. Ibarra is started on adjuvant anastrozole as well as abemaciclib. After taking abemaciclib 150 mg p.o. twice daily for 6 days Ms. Ibarra decided to discontinue it due to significant diarrhea. 03/14/2023: Ms. Ibarra received first dose of adjuvant zoledronic acid. 03/28/2023: Ms. Ibarra is started on adjuvant radiation therapy to the left chest wall as well as left side of neck. 09/20/2023: PET/CT scan 10/01/2023: MRI of the thoracic spine with and without contrast 10/29/2023: MRI of the cervical spine with and without contrast 11/21/2023: Ms. Ibarra is started on radiation therapy to the cervical spine area. 11/23/2023: Bone scan? 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 FAMILY HISTORY: Father:?LUNG Cancer History:?2 AUNTS LUNG MATERNAL AUNT BREAST ?Clone Family Hx? SOCIAL HISTORY: Occupational?History:?RETIRED Education?Level:?6-Attended?Vocational?School,?did?not?graduate Marital?Status:? Tobacco?Pack?per?Day:?0 ETOH?Use:?SOCIAL Drug?Note:?DENIES Social?History?Note:?LIVES?WITH? 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 MEDICATIONS: 1. amLODIPine - 2.5 mg 1 tab Daily 2. aspirin - 81 mg 1 tab Daily 3. baclofen - 10 mg Daily 4. Citracal - 200 mg (950 mg) tab As directed 5. Colace - 100 mg 1 Capsule Daily 6. Compazine - 10 mg 1 tab As needed 7. FLUoxetine - 10 mg 1 tab Daily 8. gabapentin - 300 mg 3 Capsule 3 tabs three times Daily 9. HYDROcodone-acetaminophen - 7.5-325 mg 1 tab q6 10. Kisqali Femara Co-Pack - 400 mg/day(200 mg x 2)-2.5 mg 2 tab Daily 11. Lomotil - 2.5-0.025 mg 1 tab Every 6 Hours 12. meloxicam - 7.5 mg 1 tab Daily 13. Multivitamin 50 Plus - 1 tab Daily 14. omeprazole - 20 mg 1 Daily 15. Protonix - 20 mg 1 tab Daily 16. rosuvastatin - 20 mg 1 tab Daily 17. traZODone - 50 mg 1 tab Every day before sleep 18. Vitamin D3 - 400 unit 1 Capsule Daily 19. vitamins A, C, and E/dietary supplement,[facility] comb no.12 - As directed 20. ZINC ACETATE - As directed 21. Zofran - 4 mg tab As needed?Palabra Meds? Medications Last Reconciled by Karo Blackwood MA on 12/29/2024 ALLERGIES: sulfasalazine REVIEW OF SYSTEMS: A complete 14-point review of systems was performed and is negative except as noted in interval history. PHYSICAL EXAMINATION:?[facility] PE? VITAL SIGNS: Temperature?98, B/P?132/87, Oxygen?Saturation?97% Weight?132?lbs (Change?since?12/09/24:?4.6?lbs) PAIN: 0 - No pain EYE: Conjunctivae is moist MOUTH: Oral cavity is dry. CHEST: Clear to auscultation. No wheezes or rales audible. CARDIAC: Rhythm regular, no murmurs or gallops present. ABDOMEN: Soft. No hepatosplenomegaly. EXTREMITIES: No pedal edema or cyanosis. LABORATORY DATA: I have personally reviewed and interpreted each of the patient?s relevant lab tests, abnormal findings are below: Date 11/11/24 12/08/24 ??WHITE?BLOOD?COUNT?(Thou/mm3) 2.4?L 2.4?L ??RED?BLOOD?COUNT?(Miln/mm3) 3.30?L 3.45?L ??HEMOGLOBIN?(gm/dl) 11.7?L 12.4 ??HEMATOCRIT?(%) 35.2?L 36.2 ??PLATELET?COUNT?(Thou/mm3) 162 145 ??NEUTROPHILS?%,?AUTO?(%) 53 48 ??LYMPH?%,?AUTO?(%) 32 39 ??NEUTROPHILS,?AUTO?(Thou/mm3) 1.2?L 1.2?L ??GLUCOSE,RANDOM?(mg/dL) ? 94 ??BLOOD?UREA?NITROGEN?(mg/dL) ? 11 ??CREATININE?(mg/dL) ? 1.00 ??SODIUM?(mmol/L) ? 143 ??POTASSIUM?(mmol/L) ? 3.9 ??CHLORIDE?(mmol/L) ? 105 ??CrCl?(CandG)?(ml/min) ? 49.20 ??AST/SGOT?(Unit/L) ? 24 ??ALT/SGPT?(Unit/L) ? 10 ??ALKALINE?PHOSPHATASE?(Unit/L) ? 54 ??BILIRUBIN,?TOTAL?(mg/dL) ? 0.3 ??PROTEIN?TOTAL?(gm/dl) ? 7.1 ??ALBUMIN,?SERUM?(gm/dl) ? 4.6 ??GLOBULIN?(gm/dl) ? 2.5 ??ALBUMIN/GLOBULIN?RATIO ? 1.8 ??CALCIUM,?SERUM?(mg/dL) ? 10.1 ??CALCIUM?SERUM?(CORRECTED)?(mg/dL) ? 10.1 ??CEA?(O*)?(ng/ml) ? 1.2 ASSESSMENT/PLAN:?Amadeo Nathan Assessment/Plan? #1 stage IV metastatic breast cancer with bone mets, ER positive MN negative HER2/colette negative AKT1 mutation positive Bone scan showed osseous metastatic disease as documented above. MRI of the cervix spine with and without contrast showed osseous metastatic disease involving C5, C6, C7 vertebral bodies. Completed radiotherapy to the cervical spine Patient started on Faslodex and ribociclib Patient previously was on adjuvant anastrozole started on February 21, 2023. Patient adjuvant abemaciclib 150 mg p.o. twice daily for about 6 days. She was unable to continue due to significant diarrhea. Patient also received first dose of adjuvant zoledronic acid on 03/14/2023. S/p 4 cycles of dose dense AC and 3 cycles of dose dense Taxol. Ms. Ibarra is scheduled to receive third cycle of dose dense Taxol on 02/15/2023. S/p left modified radical mastectomy (09/19/2022) Will hold on Capivasertib which can be used in third line setting Plan is to continue ribociclib and fulvestrant until further progression of disease PET CT scan ordered to see response to treatment CBC CMP CA 15-3 EKG and RTC in 1 month #2 bone mets Zol edronic acid IV every 3 months for bone mets Continue Citracal 1 tablet p.o. twice daily. A PET scan on July 01 showed an increase in a nodule size from 10.4 mm to 12.6 mm, which prompted the change in treatment. The patient started Kisqali 600 mg on May 05. Recent mutation burden tests came back negative. An echocardiogram showed normal heart function. Cont current therapy Squamous Cell Carcinoma of Forearm Assessment: Patient has been diagnosed with squamous cell carcinoma on the forearm Advised to follow with dermatology Scalp Condition (Possible Seborrheic Dermatitis) Assessment: Patient presents with significant dandruff and scaling on the scalp, possibly indicative of seborrheic dermatitis. Plan: - Recommend use of tar gel shampoo - Suggest application of heated coconut oil with brad to scalp before shampooing - Patient to consult with admissions officer at upcoming appointment next Sunday for further evaluation and possible prescription treatment Cataracts Assessment: Patient inquired about addressing cataracts. Given the current cancer treatment and potential for low blood cell counts, timing of the procedure needs to be carefully considered. Plan: - Schedule cataract surgery, coinciding with the start of the next ribociclib cycle and do not take ribociclib for that month and cont fulvestrant - Take a one-week break from ribociclib before cataract surgery - Ensure blood counts are adequate before proceeding with surgery Fatigue Will get labs for iron /vitamins Psychosocial Concerns Assessment: Patient's expresses emotional distress due to the impact of cancer on their relationship and overall quality of life. The couple has been together for 34 years, and the cancer diagnosis is taking a toll on their relationship. Plan: - Encourage daily meditation for positive energy - Provide emotional support and reassurance about the potential for long-term survival with current treatments - Consider referral for psychosocial support or counseling if needed #3 pain management Patient to follow with Dr. Ortiz for pain management Ordered gabapentin 300 mg 3 times daily for better neuropathic pain control ORDERS: Order # Description [id number] Comprehensive Metabolic Panel - 12 + CBC with Auto Diff + MD Follow Up 4 Month [id number] Ferritin + Vitamin B-12 + Folic Acid; Serum + Iron Panel [id number] MD Follow Up 3 Months RETURN TO CLINIC: I reviewed the diagnosis, prognosis, and recommended treatment/procedure options with the patient (and/or their legal high school admissions representative), including the potential benefits, risks, side effects and alternative therapies. We also discussed the option of no treatment and the possibility of clinical trial participation, if applicable. All questions were addressed, and they demonstrated understanding. They provided informed consent to proceed with the proposed plan of care. BILLING AND COMPLIANCE: I reviewed external records from providers outside my specialty as summarized above. I spent a total of 50 minutes on this patient?s care on the day of their visit excluding time spent related to any billed procedures. This time includes time spent with the patient as well as time spent documenting in the medical record, reviewing patients records and tests, obtaining history, placing orders, communicating with other healthcare professionals, counseling the patient, family or caregiver, and/or care coordination for the diagnoses above. Electronically Signed by: Inocente Nathan MD T: 1:03 PM CC: Baljeet,? PCP: Jewel Dolan Referring: Jewel Dolan This document was completed utilizing speech recognition software. Grammatical errors, random word insertions, pronoun errors, and incomplete sentences are an occasional consequence of this system due to software limitations, ambient noise, and hardware issues. Any formal questions or concerns about the content, text or information contained within the body of this dictation should be directly addressed to the provider for clarification.
== END 2025-01-02 23:59 | disposition home or self-care (01) ==
LOC: SCTC 14:50
PROVIDERS: Internal Medicine Hematology & Oncology; PCP Family Medicine; Referring Provider Family Medicine; Visit Provider Radiology Therapeutic Radiology
DX: Z51.11 Encounter for antineoplastic chemotherapy (principal); C50.812 Malignant neoplasm of overlapping sites of left female breast; C79.51 Secondary malignant neoplasm of bone; Z17.0 Estrogen receptor positive status [ER+]; Z17.22 Progesterone receptor negative status; Z17.32 Human epidermal growth factor receptor 2 negative status; Z92.3 Personal history of irradiation; C44.629 Squamous cell carcinoma of skin of left upper limb, including shoulder; L21.0 Seborrhea capitis; H26.9 Unspecified cataract
CPT/HCPCS: 36591; 80053; 82378; 85025; 86300; 96365; 96367; 96402; 99212; A4216; J1642; J3489; J7030; J9395; G0463

== ENCOUNTER 2025-01-12 13:21 | Outpatient (RCR) | payer MEDICARE, SELFPAY ==
[2025-01-09 12:41] LABS: Basophils # (Auto) 0.1 Thou/mm3 (0.0-0.2); Basophils % (Auto) 2 % (0-2.5); Eosinophils # (Auto) 0.1 Thou/mm3 (0.0-0.5); Eosinophils % (Auto) 3 % (0-10); Hematocrit 35.9 % (36.0-46.0); Hemoglobin 12.0 g/dL (12.0-16.0); Immature Granulocytes Auto 0.00 Thou/mm3 (0.00-0.00); Lymphocytes # (Auto) 0.7 Thou/mm3 (1.0-4.8); Lymphocytes % (Auto) 31 % (10-50); Mean Corpuscular HGB Conc 33.4 g/dl (31.0-37.0); Mean Corpuscular Hemoglobin 34.5 pg (25.0-35.0); Mean Corpuscular Volume 103 fL (80-100); Monocytes # (Auto) 0.2 Thou/mm3 (0.0-0.8); Monocytes % (Auto) 7 % (0-12); Neutrophils # (Auto) 1.3 Thou/mm3 (1.8-7.7); Neutrophils % (Auto) 57 % (37-80); Nucleated Red Blood Cell # 0.00 Thou/mm3 (0.00-0.00); Nucleated Red Blood Cell % 0 /100 WBC (0); Platelet Count 191 Thou/mm3 (140-440); RDW Standard Deviation 55.6 fL (36.4-46.3); Red Blood Count 3.48 Miln/mm3 (4.00-5.20); White Blood Count 2.4 Thou/mm3 (3.6-11.0)
[2025-01-09 12:54] LABS: Carcinoembryonic Antigen 0.9 ng/mL (0.0-5.0)
[2025-01-09 13:03] LABS: Alanine Aminotransferase 10 U/L (10-49); Albumin, Serum 4.7 gm/dL (3.4-4.8); Albumin/Globulin Ratio 2.5 (1.2-2.2); Alkaline Phosphatase 54 U/L (46-116); Anion Gap 10 (7-16); Aspartate Amino Transferase 21 U/L (0-34); BUN/Creatinine Ratio 15 Ratio (12-20); Bilirubin,Total 0.4 mg/dL (0.3-1.2); Blood Urea Nitrogen 18 mg/dL (9-23); Calcium 9.6 mg/dL (8.3-10.6); Calcium (Corrected) 9.6 mg/dL (8.5-10.1); Carbon Dioxide 26.6 mMol/L (20.0-31.0); Chloride 105 mMol/L (98-107); Creatinine (Component) 1.2 mg/dL (0.6-1.3); Globulin 1.9 gm/dL (2.3-3.5); Glucose 95 mg/dL (74-106); Osmolality,Calculated 285 (275-295); Potassium 4.1 mMol/L (3.4-5.1); Sodium 142 mMol/L (136-145); Total Protein 6.6 gm/dL (5.7-8.2); eGFR 49 See Note
[2025-01-14 07:38] LABS: CA 27.29* 52 U/mL (LESS THAN 38)
== END 2025-02-01 23:59 | disposition home or self-care (01) ==
LOC: SCTC 13:21
PROVIDERS: Internal Medicine Hematology & Oncology; PCP Family Medicine; Referring Provider Family Medicine; Visit Provider Radiology Therapeutic Radiology
DX: Z51.11 Encounter for antineoplastic chemotherapy (principal); C50.412 Malignant neoplasm of upper-outer quadrant of left female breast; C50.812 Malignant neoplasm of overlapping sites of left female breast; C79.51 Secondary malignant neoplasm of bone; Z17.0 Estrogen receptor positive status [ER+]; Z17.22 Progesterone receptor negative status; Z17.32 Human epidermal growth factor receptor 2 negative status; Z92.3 Personal history of irradiation; H26.9 Unspecified cataract; R53.83 Other fatigue; Z63.0 Problems in relationship with spouse or partner
CPT/HCPCS: 36591; 80053; 82378; 85025; 86300; 96402; A4216; J1642; J9395

== ENCOUNTER 2025-02-11 13:27 | Outpatient (RCR) | payer MEDICARE, SELFPAY ==
[2025-02-10 16:35] LABS: Basophils # (Auto) 0.0 Thou/mm3 (0.0-0.2); Basophils % (Auto) 1 % (0-2.5); Eosinophils # (Auto) 0.0 Thou/mm3 (0.0-0.5); Eosinophils % (Auto) 1 % (0-10); Hematocrit 33.6 % (36.0-46.0); Hemoglobin 11.3 g/dL (12.0-16.0); Immature Granulocytes Auto 0.02 Thou/mm3 (0.00-0.00); Lymphocytes # (Auto) 0.8 Thou/mm3 (1.0-4.8); Lymphocytes % (Auto) 27 % (10-50); Mean Corpuscular HGB Conc 33.6 g/dl (31.0-37.0); Mean Corpuscular Hemoglobin 34.3 pg (25.0-35.0); Mean Corpuscular Volume 102 fL (80-100); Monocytes # (Auto) 0.2 Thou/mm3 (0.0-0.8); Monocytes % (Auto) 5 % (0-12); Neutrophils # (Auto) 1.9 Thou/mm3 (1.8-7.7); Neutrophils % (Auto) 64 % (37-80); Nucleated Red Blood Cell # 0.00 Thou/mm3 (0.00-0.00); Nucleated Red Blood Cell % 0 /100 WBC (0); Platelet Count 232 Thou/mm3 (140-440); RDW Standard Deviation 53.4 fL (36.4-46.3); Red Blood Count 3.29 Miln/mm3 (4.00-5.20); White Blood Count 3.0 Thou/mm3 (3.6-11.0)
[2025-02-10 17:07] LABS: Carcinoembryonic Antigen 1.0 ng/mL (0.0-5.0)
[2025-02-10 17:16] LABS: Alanine Aminotransferase < 7 U/L (10-49); Albumin, Serum 4.6 gm/dL (3.4-4.8); Albumin/Globulin Ratio 1.8 (1.2-2.2); Alkaline Phosphatase 56 U/L (46-116); Anion Gap 13 (7-16); Aspartate Amino Transferase 22 U/L (0-34); BUN/Creatinine Ratio 14 Ratio (12-20); Bilirubin,Total 0.4 mg/dL (0.3-1.2); Blood Urea Nitrogen 14 mg/dL (9-23); Calcium 9.5 mg/dL (8.3-10.6); Calcium (Corrected) 9.5 mg/dL (8.5-10.1); Carbon Dioxide 26.7 mMol/L (20.0-31.0); Chloride 103 mMol/L (98-107); Creatinine (Component) 1.0 mg/dL (0.6-1.3); Globulin 2.5 gm/dL (2.3-3.5); Glucose 76 mg/dL (74-106); Osmolality,Calculated 284 (275-295); Potassium 4.0 mMol/L (3.4-5.1); Sodium 143 mMol/L (136-145); Total Protein 7.1 gm/dL (5.7-8.2); eGFR > 60 See Note
[2025-02-17 06:28] LABS: CA 27.29* 32 U/mL (LESS THAN 38)
== END 2025-03-04 23:59 | disposition home or self-care (01) ==
LOC: SCTC 13:27
PROVIDERS: Internal Medicine Hematology & Oncology; PCP Family Medicine; Referring Provider Family Medicine; Visit Provider Radiology Therapeutic Radiology
DX: Z51.11 Encounter for antineoplastic chemotherapy (principal); C50.812 Malignant neoplasm of overlapping sites of left female breast; C79.51 Secondary malignant neoplasm of bone; Z17.0 Estrogen receptor positive status [ER+]; Z17.21 Progesterone receptor positive status; Z17.32 Human epidermal growth factor receptor 2 negative status; Z90.12 Acquired absence of left breast and nipple; Z92.3 Personal history of irradiation; C76.42 Malignant neoplasm of left upper limb; L21.0 Seborrhea capitis; R53.83 Other fatigue; H26.9 Unspecified cataract; Z63.0 Problems in relationship with spouse or partner
CPT/HCPCS: 36591; 80053; 82378; 85025; 86300; 96402; A4216; J1642; J9395